=== PATIENT | male | born 1955 | race Asian ===

== ENCOUNTER → 2021-04-20 11:11 | Outpatient (BNVA) | payer MEDICARE, MEDICAID, SELFPAY | PROVIDERS: PCP Internal Medicine; Referring Provider Internal Medicine; Visit Provider Surgery | DX: K40.90 Unilateral inguinal hernia, without obstruction or gangrene, not specified as recurrent (principal) | CPT/HCPCS: 99202 ==

== ENCOUNTER 2021-05-24 06:21 | Day surgery (SDC) | payer MEDICARE, SELFPAY ==
[2021-05-19 14:24] VITALS: BMI 27.3
[2021-05-24 06:44] LABS: Glucose, Whole Blood 173 mg/dL (60-115)
[2021-05-24 06:51] VITALS: BP 156/98; PULSE 82; RESP 18; TEMP 36.1; O2SAT 96
[2021-05-24] MEDS: ceFAZolin Sodium/Dextrose,Iso 2 GM/50 ML PIGGYBACK IV (06:53)
[2021-05-24] MEDS: Lactated Ringers 1,000 ML 100 ML IVCONT (06:53)
--- NOTE | 2021-05-24 07:08 | HO.ANESPROP2 ---
[facility] Active Problems Active Problems: All Active Problems (Updated 05/19/21 @ 14:23 by Padmini Lynch) Left inguinal hernia (Acute) Diabetes mellitus (Acute) Hypercholesterolemia (Acute) Past Medical History Medical History (Updated 05/19/21 @ 14:23 by Padmini Lynch) COVID-19 vaccine series completed Diabetes mellitus History of COVID-19 Hypercholesterolemia Family History Family history of problems with anesthesia: No Surgical History Surgical History (Updated 05/19/21 @ 14:21 by Padmini Lynch) No history of previous surgery History of Problems with Anesthesia: No Social History Social History (Updated 05/19/21 @ 14:23 by Padmini Lynch) Alcohol intake: current Alcohol intake frequency: holidays/special occasions only Patient Tobacco Use Status: Former Tobacco user Quit Date: Use of substances other than those prescribed or required for medical reasons: No Are you DNR?: No Advance Directives: No Advance Directives Information Provided: No Advance Directives on File: No Meds Allergies Allergy/AdvReac Type Severity Reaction Status Date / Time Seasonal Allergies Allergy Mild Unknown Verified 05/11/21 11:17 Active Medications: Current Medications Generic Name Dose Route Start Last Admin Trade Name Freq PRN Reason Stop Dose Admin Lactated Ringer's 1,000 mls @ 100 mls/hr 05/24/21 06:30 05/24/21 06:53 Lr IVCONT 100 mls/hr .Q10H SURESH Administration Home Medications Medication Instructions Recorded Confirmed Last Taken Type ammonium lactate 12 % lotion TOPICAL 04/20/21 04/20/21 Unknown History aspirin 81 mg tablet,delayed 81 mg PO DAILY 04/20/21 05/19/21 Unknown History release blood sugar diagnostic #10 ea 04/20/21 04/20/21 Unknown History blood-glucose meter #1 ea 04/20/21 04/20/21 Unknown History canagliflozin 300 mg tablet 300 mg PO DAILY 04/20/21 05/19/21 Unknown History glipizide 10 mg tablet 10 mg PO BID 04/20/21 05/19/21 Unknown History lancets 28 gauge #100 ea 04/20/21 04/20/21 Unknown History sildenafil 25 mg tablet 25 mg PO DAILY PRN 04/20/21 04/20/21 Unknown History simvastatin 40 mg tablet 40 mg PO BEDTIME 04/20/21 05/19/21 Unknown History Exam Exam Date and Time: May 24, 2021 0708 Height,Weight and Vital Signs: Height 5 ft 7 in Weight 79.379 kg Last Vital Signs Temp 97.0 F 05/24/21 06:51 Pulse 82 05/24/21 06:51 Resp 18 05/24/21 06:51 BP 156/98 H 05/24/21 06:51 Pulse Ox 96 05/24/21 06:51 Pertinent Lab Results Pertinent Lab Results: Laboratory Tests 05/24/21 06:40 POC Glucose 173 H Airway Mallampati Class: III TM Dist: <=3cm Neck ROM: Full Loose/Missing/Broken Teeth: No Heart: ok Lungs: ok Assessment and Plan Assessment Anesthesia Assessment: Anesthesia Plan Discussed and Chart Reviewed Final Anesthetic Review NPO: Yes ASA Class: II Final Preanesthetic Review: No Changes in Pt Med Stat, Meds/Allgs Chart Reviewed, Consent Obtained/Reviewed and Anes Risks/Benef Reviewed Patient Risk: Intermediate Procedure Risk: Low Anesthetic Plan Anesthetic Plan: GA and Agree w/ Assess. and Plan Disposition: Standard PACU
--- NOTE | 2021-05-24 07:27 | MHC.SHP ---
Pre-Procedural Eval Section A Date of Service: 05/24/21 The patient is an INPATIENT: No Changes since office visit: Yes Patient answered all questions; No Cold of Flu in the past 2 weeks, No New Medical Problems and No Changes in Medication The History & Physical has been completed within 30 days and I have reviewed it.: Yes Section B Chief Complaint: Left Inguinal Hernia Allergies: Allergies Allergy/AdvReac Type Severity Reaction Status Date / Time Seasonal Allergies Allergy Mild Unknown Verified 05/11/21 11:17 Plan Diagnosis/Plan: Unchanged I have reviewed the history and physical and performed a pertinent physical examination on my patient. No changes have occurred unless specified.
--- NOTE | 2021-05-24 08:40 | W.PM.OPN ---
Operative Note Operative Note Date of Service: 05/24/21 Narrative: Preoperative diagnosis: Left inguinal hernia Postoperative diagnosis: Same Procedure: Repair of left inguinal hernia with mesh Surgeon: Mart Allen MD Lead Software Developer: No physician Anesthesia: General LMA Indications for procedure: 66-year-old male patient presenting with a lump in the left groin which increases in size with lifting and straining. On examination the patient is found to have a left inguinal hernia which increases with Valsalva maneuvers and reduces with light pressure. There is minimal tenderness to palpation. Operative findings:. Large indirect left inguinal hernia containing preperitoneal fat Specimen: None Estimated blood loss: 5 mL Complications: None Procedure details: Patient was brought to the OR and placed in a supine position. After administering general anesthesia the patient's abdomen was prepped with ChloraPrep and draped in a sterile fashion. A surgical time-out was called the consent confirmed. Patient received preoperative antibiotics and Venodyne boots were in place. Local anesthesia consisting of 0.5% Sensorcaine with epinephrine was infiltrated over the left inguinal ligament. Incision was then made in oblique fashion over the inguinal ligament. This carried out through subcutaneous tissue past Bhavani's fashion up to the external oblique aponeurosis. Additional local was infiltrated below the external oblique aponeurosis. This was then incised with a scalpel wide with the Metzenbaum scissors. Spermatic cord was then dissected free from the surrounding inguinal canal and retracted using a Shan drain. The floor of the inguinal canal was examined and no direct hernia was identified. A large indirect hernia was noted just lateral to the epigastric vessels extending into the for matted cord. The sac was dissected free from the spermatic cord and reduced into the abdominal cavity. The sac was then plicated using [id number] 0 Polysorb sutures to close the enlarged internal ring and internal oblique muscle. Fibers of the cremasteric muscle were then and no indirect sac identified within the spermatic cord. Attention was then directed to the direct space which was divided between Allis clamps. The preperitoneal space was then created. This was opened further using an open Ray-Dom sponge. A medium PHS mesh was then obtained. The circular underlay was placed into the preperitoneal space and deployed. The overlay was then secured to the pubic tubercle conjoined tendon shelving edge of the inguinal ligament using interrupted 0 Polysorb sutures. A slit was made in the mesh and the mesh were wrapped around the spermatic cord at the internal ring. This was then secured to the shelving edge of the inguinal ligament using the 0 Polysorb suture. This was felt to be loose enough to allow the tip of an index finger to pass. Wounds were checked for hemostasis. Wounds were irrigated with saline solution and suctioned dry. External oblique aponeurosis was then closed using a running 2 0 Polysorb suture. Bhavani's fascia and dermis reapproximated using interrupted 3-0 Polysorb sutures. Skin was then closed using a running subcuticular 4-0 Polysorb suture. Steri-Strips 2 x 2 gauze and Tegaderm were then applied. The patient tolerated the procedure well. Sponge, instrument, needle counts reported as correct. Patient was transferred to PACU in stable condition.
[2021-05-24 08:45] VITALS: BP 155/90; PULSE 80; RESP 12; TEMP 36.6; O2SAT 97
[2021-05-24 08:50] VITALS: BP 147/95; PULSE 80; RESP 12; O2SAT 97
[2021-05-24 08:55] VITALS: BP 136/93; PULSE 80; RESP 16; O2SAT 98
[2021-05-24 09:00] VITALS: BP 146/96; PULSE 75; RESP 16; O2SAT 98
[2021-05-24 09:15] VITALS: BP 147/93; PULSE 74; RESP 16; TEMP 36.6; O2SAT 100
== END 2021-05-24 09:57 | disposition home or self-care (01) ==
PROVIDERS: PCP Internal Medicine; Visit Provider Surgery
PROC: (CPT 49505; principal; 2021-05-24 07:30)
DX: K40.90 Unilateral inguinal hernia, without obstruction or gangrene, not specified as recurrent (principal); E11.9 Type 2 diabetes mellitus without complications; E78.00 Pure hypercholesterolemia, unspecified; Z79.84 Long term (current) use of oral hypoglycemic drugs; Z79.82 Long term (current) use of aspirin; Z79.899 Other long term (current) drug therapy; Z86.16 Personal history of COVID-19; Z87.891 Personal history of nicotine dependence
CPT/HCPCS: 49505; 82947; C1781; J0690; J1100; J2405; J3010

== ENCOUNTER → 2021-06-01 10:06 | Outpatient (BNVA) | payer MEDICARE, SELFPAY | PROVIDERS: PCP Internal Medicine; Referring Provider Internal Medicine; Visit Provider Surgery | DX: Z48.815 Encounter for surgical aftercare following surgery on the digestive system (principal); Z87.19 Personal history of other diseases of the digestive system | CPT/HCPCS: 99212 ==

== ENCOUNTER → 2021-06-29 15:40 | Outpatient (BNVA) | payer MEDICARE, SELFPAY | PROVIDERS: PCP Internal Medicine; Referring Provider Internal Medicine; Visit Provider Surgery | DX: Z48.815 Encounter for surgical aftercare following surgery on the digestive system (principal); Z87.19 Personal history of other diseases of the digestive system | CPT/HCPCS: 99212 ==

== ENCOUNTER 2023-07-02 16:16 | Outpatient (REF) | payer MEDICARE, SELFPAY | END 2023-07-02 16:17 | disposition home or self-care (01) | LOC: HO.CHCLDS 16:16 | PROVIDERS: Visit Provider Internal Medicine | DX: Z12.5 Encounter for screening for malignant neoplasm of prostate (principal); R30.0 Dysuria | CPT/HCPCS: 36415; 84153 ==

== ENCOUNTER 2024-02-21 15:57 | Outpatient (REF) | payer MEDICARE, SELFPAY ==
[2024-02-21 18:32] LABS: Influenza A PCR NEGATIVE (Negative); Influenza B PCR NEGATIVE (Negative); Resp Syncy Virus RNA Qual PCR NEGATIVE (Negative); SARS COV2 PCR INHOUSE NEGATIVE (Negative)
== END 2024-02-21 15:58 | disposition home or self-care (01) ==
LOC: HO.CHCLNP 15:57
PROVIDERS: Visit Provider Family Medicine
DX: J45.40 Moderate persistent asthma, uncomplicated (principal); R06.02 Shortness of breath; R05.1 Acute cough
CPT/HCPCS: 0241U

== ENCOUNTER 2024-04-08 08:34 | Outpatient (REF) | payer MEDICARE, SELFPAY ==
[2024-04-08 14:45] LABS: MANUAL DIFF FLAG NO
[2024-04-08 15:20] LABS: Alanine Aminotransferase 61 U/L (0-40); Albumin Level 4.6 g/dL (3.5-5.0); Alkaline Phosphatase 52 U/L (39-117); Anion Gap 15 (12-20); Aspartate Amino Transferase 36 U/L (5-37); Bilirubin Total 0.8 mg/dL (0.0-1.0); Blood Urea Nitrogen 18 mg/dL (9-16); Calcium 9.8 mg/dL (8.4-10.2); Carbon Dioxide 26 mmol/L (22-29); Chloride 104 mmol/L (96-108); Cholesterol 169 mg/dL (<200); Estimated Glomerular Filt Rate > 60; Glucose Random 154 mg/dL (60-115); HDL Cholesterol 40 mg/dL (>40); Potassium 4.7 mmol/L (3.3-5.1); Sodium 140 mmol/L (135-145); Total Protein 8.2 g/dL (6.5-8.0); Triglycerides 442 mg/dL (<150)
[2024-04-08 15:24] LABS: Basophils Percent Auto 0.4 % (0-2); Eosinophils Absolute Auto 0.1 X10*3/uL (0.0-0.4); Eosinophils Percent Auto 1.6 % (0-4); Hematocrit 51.3 % (42.0-52.0); Hemoglobin 16.9 g/dl (14.0-18.0); Imm Gran Abs Auto 0.04 X10*3/uL (0.00-0.03); Imm Gran Pct Auto 0.4 % (0.0-0.4); Lymphocytes Absolute Auto 0.9 X10*3/uL (1.2-4.9); Lymphocytes Percent Auto 10.5 % (20-40); Mean Corpuscular HGB Conc 32.9 g/dl (31.0-36.0); Mean Corpuscular Hemoglobin 29.9 pg (27.0-33.0); Mean Corpuscular Volume 90.6 fL (80.0-98.0); Mean Platelet Volume 10.6 fL (9.4-12.4); Monocytes Absolute Auto 0.6 X10*3/uL (0.1-1.2); Monocytes Percent Auto 6.3 % (2-11); Neutrophils Absolute Auto 7.3 x10*3/uL (2.0-8.3); Neutrophils Percent Auto 80.8 % (45-73); Platelet Count 150 X10*3/uL (160-400); Red Blood Count 5.66 X10*6/uL (4.60-5.80); Red Cell Distribution Width 13.9 % (11.0-16.0)
[2024-04-08 15:26] LABS: TSH reflex Free T4 0.71 uIU/mL (0.32-4.0); Vitamin D 25-OH Total 26.1 ng/mL (>30)
[2024-04-08 15:40] LABS: Creatinine Urine 59.67 mg/dL; Microalbum/Creatinine Ratio Ur 41.8 ug/mg cr (<30)
[2024-04-08 15:42] LABS: Folate 7.7 ng/mL (> or = 4.0); Vitamin B12 572 pg/mL (200-900)
== END 2024-04-08 08:35 | disposition home or self-care (01) ==
LOC: HO.CHCLDS 08:34
PROVIDERS: Visit Provider Internal Medicine
DX: E78.00 Pure hypercholesterolemia, unspecified (principal); R53.83 Other fatigue; E11.9 Type 2 diabetes mellitus without complications
CPT/HCPCS: 36415; 80053; 80061; 82043; 82306; 82570; 82607; 82746; 84443; 85025

== ENCOUNTER 2025-04-16 08:50 | Outpatient (REF) | payer MEDICARE, SELFPAY ==
--- OUTSIDE RECORDS SUMMARY | 2025-04-16 09:07 | XMS_ITS | Encounter Summary ---
Author Organization [employer] Address [address] [facility] [address] [place] [address] Care Team Providers Care Sales Order Clerk Name Role Phone Elvira Shipley MD Primary Care Provider [phone] Anabel Sullivan PharmD Unavailable [phone] Encounter Details Date Type Department Care Team (Late Contact Info) Description 05/09/2023 Orders Only [facility] MED & PEDS [address] [place] [address] Ivania Bellamy LPN Social History Tobacco Use Types Packs/Day Years Used Date Smoking Tobacco: Former Cigarettes 1 32 1 971 - 2003 Smokeless Tobacco: Never Sex and Gender Information Value Date Recorded Sex Assigned at Male 09/10/2022 10:21 AM EDT Legal Sex Male 10:21 AM EDT Gender Identity Choose not to disclose 10:21 AM EDT Sexual Orientation Choose not to disclose 2021 10:21 AM EDT COVID-19 Exposure Response Date Recorded In the last 10 days, have yo u been in contact with someone who was confirmed or suspected to have Coronavirus/COVID-19? No / Unsure 05/03/2023 4:02 PM EDT documented as of this encounter Plan of Treatment Upcoming Encounters Date Type Department Care Team (Late st Contact Info) Description 04/23/2025 3:00 PM EDT Telemedicine [facility] MED & PEDS [address] [place] [address] Anabel Sullivan, PharmD [address] [place], [place] [phone] 06/10/2025 4:00 PM EDT Office Visit [facility] MED & PEDS [address] [place] [address] Elvira Shipley MD [address] [place] [address] documented as of this encounter Visit Diagnoses Not on filedocumented in this encounter Care Teams Sales Order Clerk Relationship Specialty Start Date End Date Elvira Shipley MD [address] [place] [address] PCP - General Internal Medicine 11/11/18 Anabel Sullivan, Mary BethD [address] [place] [id number] Pharmacist Internal Medicine 03/26/25 documented as of this encounter
[2025-04-16 14:08] LABS: MANUAL DIFF FLAG NO
[2025-04-16 14:18] LABS: Basophils Percent Auto 0.4 % (0-2); Eosinophils Absolute Auto 0.2 X10*3/uL (0.0-0.4); Eosinophils Percent Auto 2.8 % (0-4); Hemoglobin 16.2 g/dl (14.0-18.0); Imm Gran Abs Auto 0.01 X10*3/uL (0.00-0.03); Imm Gran Pct Auto 0.1 % (0.0-0.4); Lymphocytes Absolute Auto 2.7 X10*3/uL (1.2-4.9); Lymphocytes Percent Auto 39.2 % (20-40); Mean Corpuscular HGB Conc 33.1 g/dl (31.0-36.0); Mean Corpuscular Hemoglobin 29.1 pg (27.0-33.0); Mean Corpuscular Volume 88.1 fL (80.0-98.0); Mean Platelet Volume 10.4 fL (9.4-12.4); Monocytes Absolute Auto 0.4 X10*3/uL (0.1-1.2); Monocytes Percent Auto 6.5 % (2-11); Neutrophils Absolute Auto 3.5 x10*3/uL (2.0-8.3); Platelet Count 152 X10*3/uL (160-400); Red Blood Count 5.56 X10*6/uL (4.60-5.80); Red Cell Distribution Width 13.4 % (11.0-16.0); White Blood Count 6.8 X10*3/uL (4.8-10.8)
[2025-04-16 14:50] LABS: Ferritin 436 ng/mL (20-250); TSH reflex Free T4 0.91 uIU/mL (0.32-4.0)
[2025-04-16 15:03] LABS: Anion Gap 8 (12-20)
[2025-04-16 15:08] LABS: Alanine Aminotransferase 47 U/L (0-40); Albumin Level 4.6 g/dL (3.5-5.0); Alkaline Phosphatase 45 U/L (39-117); Aspartate Amino Transferase 37 U/L (5-37); Bilirubin Total 0.6 mg/dL (0.0-1.0); Blood Urea Nitrogen 20 mg/dL (9-16); Calcium 9.6 mg/dL (8.4-10.2); Carbon Dioxide 31 mmol/L (22-29); Chloride 109 mmol/L (96-108); Cholesterol 120 mg/dL (<200); Estimated Glomerular Filt Rate > 60; Glucose Random 162 mg/dL (60-115); HDL Cholesterol 35 mg/dL (>40); Iron 81 mcg/dL (45-160); LDL Cholesterol Calculated 46 mg/dL (<100); Percent Iron Saturation 27 % (15-50); Potassium 4.5 mmol/L (3.3-5.1); Sodium 143 mmol/L (135-145); Total Iron Binding Capacity 302 mcg/dL (228-428); Total Protein 7.9 g/dL (6.5-8.0); Triglycerides 196 mg/dL (<150); Unsaturated Iron Binding 221 ug/dL
[2025-04-19 20:24] LABS: IgA 583 mg/dL (70-320); IgG 1172 mg/dL (600-1540); IgM 73 mg/dL (50-300)
== END 2025-04-16 08:51 | disposition home or self-care (01) ==
LOC: HO.CHCLDS 08:50
PROVIDERS: Visit Provider Internal Medicine
DX: E11.9 Type 2 diabetes mellitus without complications (principal); E78.00 Pure hypercholesterolemia, unspecified
CPT/HCPCS: 36415; 80053; 80061; 82728; 82784; 83540; 84443; 85025

== ENCOUNTER 2025-07-14 08:42 | Outpatient (REF) | payer OTHER, SELFPAY ==
--- OUTSIDE RECORDS SUMMARY | 2025-07-13 15:00 | XMS_ITS | Encounter Summary ---
Author Organization [employer] Address [address] [facility] 7 [place] [address] Care Team Providers Care Data Developer Name Role Phone Elvira Shipley MD Primary Care Provider [phone] Anabel Sullivan PharmD Unavailable [phone] Reason for Visit * Consultation (Routine) - Authorized Specialty Diagnoses / Procedures Referred By Contac t Referred To Contact Pharmacy Diagnoses Type 2 diabetes mellitus without complication, without long-term current use of insulin (CMS/HCC) Elvira Shipley MD [address] [place] [address] Phone: tel: fax: Referral ID Status Reason Start Date Expiration Date Visits Requested Visits Authorized [id number] Authorized Consult and Treat 02/16/2025 02/16/2026 6 6 Encounter Details Date Type Department Care Team ([facility] Contact Info) Description 07/13/2025 3:00 PM EDT Telemedicine [facility] CH[facility] MED & PEDS [address] [place] [address] Anabel Sullivan, PharmD [address] [place] [address] Type 2 diabetes mellitus without complication, without long-term current use of insulin (CMS/HCC) (Primary Dx) Social History Tobacco Use Types Packs/Day Years Used Date Smoking Tobacco: Former Cigarettes 1 32 1 1 - 2002 Smokeless Tobacco: Never Housing Stability Answer Date Recorded What is your housing situation today? I have diann sing 11/12/[address] you li ve. Do you have problems with any of the following? None of the above 11/12/2024 Food Insecurity Answer Date Recorded Within the past 12 months, y ou worried that your food would run out before you got money to buy more: Never True 11/12/2024 Within the past 12 months,th e food you bought just didn't last and you didn't have enough money to get more: Never True 12/2024 Transportation Answer Date Recorded In the past 12 months, has l ack of transportation kept you from medical appts, meetings, work or from getting things needed for daily living? No 11/12/2024 Utilities Answer Date Recorded In the past 12 months, has t he [employer], gas, oil or water [employer] threatened to shut off services in your home? No 11/12/2024 Internet Access Answer Date Recorded Internet Access Q1 Yes 11/12/2024 Internet Access Q2 Not on file 11/12/2024 Sex and Gender Information Value Date Recorded Sex Assigned at Male 09/10/2022 10:21 AM EDT Legal Sex Male 10:21 AM EDT Gender Identity Male 05/05/2025 4:02 PM EDT Sexual Orientation Choose not to disclose 2021 10:21 AM EDT documented as of this encounter Progress Notes * Anabel Sullivan PharmD - 07/13/2025 3:00 PM EDT Pharmacy Brief Encounter - Medication Follow Up Pharmacist: Anabel Sullivan PharmD Edward Luong is a 70 y.o. year old patient here for CDTM - Diabetes completed over the phone. Pharmacotherapy: Metformin ER 500mg, 3 tablets daily Farxiga 10mg daily Summary of previous encounter(s): Last visit increased metformin. Patient had reported home FBG readings of ~140mg/dl uACR = 41.8 on 04/08/24, now taking Farxiga Today's Visit: Patient reports tolerating metformin, denies adverse effects or other concerns Reports FBG readings continue to average 140mg/dl Denies increase in metformin dose today, requests A1c check before further medication changes. Plan: Order A1c, patient to complete at his convenience. If > 7.5-8% will increase metformin to max daily dose of 2,000mg (4 tablets daily) Order updated uACR which was previously above goal > 1 year ago Follow up after receiving lab results or 1 month, whichever sooner. documented in this encounter Plan of Treatment Scheduled Orders Name Type Priority Associated Diagnoses Orde r Schedule Hemoglobin A1c Lab Routine Type 2 diabetes mellitus without complication, without long-term current use of insulin (CMS/HCC) Expected: 07/13/2025 (Approximate), Expires: 07/13/2026 Albumin, Random Urine W/Creatinine Lab Routine Type 2 diabetes mellitus without complication, without long-term current use of insulin (CMS/HCC) Expected: 07/13/2025 (Approximate), Expires: 07/13/2026 documented as of this encounter Visit Diagnoses Diagnosis Type 2 diabetes mellitus without complication, without long-term current use of insulin (CMS/HCC)- Primary documented in this encounter Care Teams Data Developer Relationship Specialty Start Date End Date Elvira Shipley MD [address] [place] [id number] PCP - General Internal Medicine 11/11/18 Anabel Sullivan PharmD [address] [place] [id number] Pharmacist Internal Medicine 03/26/25 documented as of this encounter
--- OUTSIDE RECORDS SUMMARY | 2025-07-14 09:10 | XMS_ITS | Encounter Summary ---
Author Organization [employer] Address [address] [facility] [facility] [address] [place] [address] Care Team Providers Care Data Examination Clerk Name Role Phone Elvira Shipley MD Primary Care Provider [phone] Anabel Sullivan PharmD Unavailable [phone] Encounter Details Date Type Department Care Team (Late st Contact Info) Description 04/08/2025 Orders Only [facility] CH[facility] MED & PEDS [address] [place], [place] [phone] ProviderAbdoul MD Social History Tobacco Use Types Packs/Day Years Used Date Smoking Tobacco: Former Cigarettes 1 32 1 971 - 2003 Smokeless Tobacco: Never Housing Stability Answer Date Recorded What is your housing situation today? I have diann malaika 11/12/[address] you li [...] the past 12 months, has t he electric, gas, oil or water company threatened to shut off services in your [...] AM EDT documented as of this encounter Plan of Treatment Not on file documented as of this encounter Procedures Procedure Name Priority Date/Time Associated Diagnosis Comments TSH W/REFLEX TO FT4 Routine 02/19/2025 9 :19 AM EDT CBC WITH AUTO DIFFERENTIAL Routine 02/19/2025 9:19 AM EDT LIPID PANEL, STANDARD Routine 02/19/2025 9:19 AM EDT COMPREHENSIVE METABOLIC PANEL Routine 02/19/2025 9:19 AM EDT documented in this encounter Results * CBC auto differential (02/19/2025 9:19 AM EDT) Blood Venous blood specimen / Unknown Result [facility] Provider LAB BLOOD ORDERABLES Renetta l Result * Comprehensive Metabolic Panel (02/19/2025 9:19 AM EDT) Blood Venous blood specimen / Unknown Result [facility] Provider LAB BLOOD ORDERABLES Renetta l Result * Lipid Panel, Standard (02/19/2025 9:19 AM EDT) Blood Venous blood specimen / Unknown [facility] Provider LAB BLOOD ORDERABLES Renetta l Result * TSH with Reflex to Free T4 (02/19/2025 9:19 AM EDT) Blood Venous blood specimen / Unknown Result [facility] Provider LAB BLOOD ORDERABLES Renetta l Result documented in this encounter Visit Diagnoses Not on filedocumented in this encounter Care Teams Data Examination Clerk Relationship Specialty Start Date End Date Elvira Shipley MD [address] [place] [address] PCP - General Internal Medicine 11/11/18 Anabel Sullivan, Laurence [address] [place] [address] [place] [address] Pharmacist Internal Medicine 03/26/25 documented as of this encounter
--- OUTSIDE RECORDS SUMMARY | 2025-07-14 09:10 | XMS_ITS | Encounter Summary ---
Author Organization [employer] Address [address] [place] [address] [place] [address] Care Team Providers Care Technical Account Manager Name Role Phone Elvira Shipley MD Primary Care Provider [phone] Anabel Sullivan PharmD Unavailable [phone] Reason for Referral * Consultation (Routine) - Authorized Specialty Diagnoses / Procedures Referred By Contrufus t Referred To Contact Pharmacy Diagnoses Type 2 diabetes mellitus without complication, without long-term current use of insulin (CMS/HCC) Elvira Shipley MD [address] [place] [address] Phone: tel: fax: Referral ID Status Reason Start Date Expiration Date Visits Requested Visits Authorized [id number] Authorized Consult and Treat 02/16/2025 02/16/2026 6 6 Encounter Details Date Type Department Care Team ([facility] st Contact Info) Description 02/16/2025 Orders Only [facility] CH[facility] MED & PEDS [address] [place] [address] Elvira Shipley MD [address] [place] [address] Type 2 diabetes mellitus without complication, without long-term current use of insulin (CMS/HCC) (Primary Dx) Social History Tobacco Use Types Packs/Day Years Used Date Smoking Tobacco: Former Cigarettes 1 32 1 1 - 2002 Smokeless Tobacco: Never Housing Stability Answer Date Recorded What is your housing situation today? I have diann dai 11/12/[address] you li [...] as of this encounter Plan of Treatment Scheduled Referrals Name Type Priority Associated Diagnoses Orde r Schedule Referral to Pharmacy CDTM Outpatient Referral Routine Type 2 diabetes mellitus without complication, without long-term current use of insulin (CMS/HCC) Ordered: 02/16/2025 documented as of this encounter Visit Diagnoses Diagnosis Type 2 diabetes mellitus without complication, without long-term current use of insulin (CMS/HCC)- Primary documented in this encounter Care Teams Technical Account Manager Relationship Specialty Start Date End Date Elvira Shipley MD [address] [place] [address] PCP - General Internal Medicine 11/11/18 Anabel Sullivan PharmD [address] [place] [address] Pharmacist Internal Medicine 03/26/25 documented as of this encounter
--- OUTSIDE RECORDS SUMMARY | 2025-07-14 09:10 | XMS_ITS | Encounter Summary ---
Author Organization [employer] Address [address] [facility] 7 [place] [address] Care Team Providers Care Bill Adjuster Name Role Phone Elvira Shipley MD Primary Care Provider [phone] Anabel Sullivan PharmD Unavailable [phone] Reason for Visit * Reason Onset Date Comments Durable Medical Equipment 05/01/2024 Encounter Details Date Type Department Care Team (Late st Contact Info) Description 05/01/2024 Telephone [facility] MEDICINE [address] [place] [address] Elvira Shipley MD [address] [place] [address] Durable Medical Equipment Social History Tobacco Use Types Packs/Day Years Used Date Smoking Tobacco: Former Cigarettes 1 32 1 971 - 2002 Smokeless Tobacco: Never Sex and Gender Information Value Date Recorded Sex Assigned at Male 09/10/2022 10:21 AM EDT Legal Sex Male 10:21 AM EDT Gender Identity Male 05/05/2025 4:02 PM EDT Sexual Orientation Choose not to disclose 2021 10:21 AM EDT documented as of this encounter Miscellaneous Notes * Telephone Encounter - Leonid Hyatt RN - 05/01/2024 3:00 PM EDT Please see message below regarding request for a new freestyle lite glucometer. Unable to locate onmed list. * Telephone Encounter - Kenji Rust - 05/01/2024 11:19 AM EDT Tc from patients spouse requesting a new Free style lite glucose monitor due to previous one being broken documented in this encounter Plan of Treatment Not on file documented as of this encounter Visit Diagnoses Not on filedocumented in this encounter Care Teams Bill Adjuster Relationship Specialty Start Date End Date Elvira Shipley MD [address] [place] [address] PCP - General Internal Medicine 11/11/18 Anabel Sullivan PharmD [address] [place] [id number] Pharmacist Internal Medicine 03/26/25 documented as of this encounter
--- OUTSIDE RECORDS SUMMARY | 2025-07-14 09:10 | XMS_ITS | Clinical Summary ---
Author Organization [employer] Address [address] [place] [address] Care Team Providers Care Barge Pilot Name Role Phone Elvira Shipley MD Primary Care Provider [phone] Anabel Sullivan PharmD Unavailable [phone] Allergies No known active allergies Medications brimonidine (AlphaGAN P) 0.2 % ophthalmic solution INSTILL ONE DROP IN EACH EYE two (2) times a day 024 Active dorzolamide-timolol (Cosopt) 2-0.5 % ophthalmic solution INSTILL ONE DROP IN EACH EYE two (2) times a day 024 Active latanoprost (Xalatan) 0.005 % ophthalmic solution INSTILL 1 DROP IN EACH EYE ONCE DAILY AT BEDTIME 024 Active [facility] Glucose 4-6 GM-MG oral gel TAKE DIRECTED NEEDED 50 tablet 5 024 Active sildenafil (Viagra) 100 MG tabletIndications:Erect ile dysfunction due to diseases classified elsewhere TAKE 1 TABLET ONCE DAILY NEEDED . TAKE 1 HOUR BEFORE SEXUAL INTERCOURSE 40 tablet 5 024 Active cholecalciferol (Vitamin D3) 25 MCG (1000 UT) tabletIndications:Vitam in D deficiency Take 1 tablet (1,000 Units) by mouth Once per day. 60 tablet 3 025 Active Arnuity Ellipta 100 MCG/ACT inhaler INHALE 1 PUFF INTO lungs ONCE DAILY IN THE MORNING. rinse mouth and throat after use 30 each 11 025 Active Farxiga 10 MGIndications:Type 2 diabetes mellitus without complication, without long-term current use of insulin ([facility]) TAKE 1 TABLET EVERY MORNING 30 tablet 5 04/28/2 025 Active Aspirin Low Dose 81 MG EC tabletIndications:Type 2 diabetes mellitus without complication, without long-term current use of insulin ([facility]) TAKE 1 TABLET EVERY MORNING 30 tablet Active ammonium lactate (Lac-Hydrin) 12 % lotion APPLY TO THE AFFECTED AREA ON SKIN two (2) times a day 225 g Active albuterol 108 (90 Base) MCG/ACT inhalerIndications:Mild intermittent asthma without complication INHALE 2 PUFFS INTO lungs EVERY 4 TO 6 HOURS NEEDED FOR SHORTNESS OF BREATH OR FOR WHEEZING 8.5 g Active ketorolac (Acular) 0.5 % ophthalmic solution INSTILL 1 DROP IN EACH EYE two (2) times a day Active polyvinyl alcohol (Liquifilm Tears) 1.4 % ophthalmic solution INSTILL 1 DROP IN EACH EYE two (2) times a day Active Vascepa 1 g capsule TAKE 2 CAPSULES (2grams) WITH BREAKFAST AND 2 CAPSULE WITH A MEAL IN THE EVENING Active glucose blood (FREESTYLE LITE) test strip Test blood sugar every morning 100 strip 3 Active FreeStyle lancetsIndications:Type 2 diabetes mellitus without complication, without long-term current use of insulin ([facility]) 1 each by Other route Once per day. Test blood sugar every morning 100 each 3 Active Blood Glucose Monitoring Suppl (FreeStyle Moore Lite) w/Device kitIndications:Type 2 diabetes mellitus without complication, without long-term current use of insulin ([facility]) Test blood sugar every morning 1 kit Active Icosapent Ethyl (Vascepa) 1 g capsuleIndications:Pure hypercholesterolemia Take 2 capsules (2 g) by mouth with breakfast and with evening meal. 120 capsule 11 025 2025 Active ketoconazole (NIZOral) 2 % shampooIndications:Othe r seborrheic dermatitis APPLY TO THE AFFECTED AREA ON SKIN ONCE DAILY, lather, LEAVE ON SCALP FOR 5 MINUTES 360 mL Active metFORMIN XR (Glucophage-XR) 500 MG 24 hr tablet Take 1 tablet by mouth 3 times daily 90 tablet 2 025 Active rosuvastatin (Crestor) 40 MG tabletIndications:Pure hypercholesterolemia TAKE 1 TABLET ONCE DAILY 90 tablet 025 Active Active Problems Problem Noted Date Diagnosed Date Hypertriglyceridemia 11/19/2024 Moderate persistent asthma 02/21/2024 Assessment & Plan (02/25/2024 4:22 PM EDT): Patient is experiencing an asthma exacerbation. Plan to administer a course of oral steroids to improve airway inflammation and symptoms. Monitoring for potential side effects of steroids, such as elevated blood sugar levels, especially since the treatment is for 5 days. - Swabs for COVID, RSV, and influenza where conducted to rule out concurrent infections that could be worsening the asthma exacerbation. TESTS RETURNED NEGATIVE - Prescribed Prednisone and Aruinity Ellipta Erectile dysfunction 06/01/2021 History of severe acute resp iratory syndrome coronavirus 2 (SARS-CoV-2) disease 01/09/2021 Diabetes mellitus 04/30/2014 Pure hypercholesterolemia 12/27/2011 Encounters Date Type Department Care Team Description 07/13/2025 3:00 PM EDT Telemedicine [facility] [address] [place] [address] Anabel Sullivan PharmD Type 2 diabetes mellitus without complication, without long-term current use of insulin (CMS/HCC) (Primary Dx) 07/13/2025 Travel 06/10/2025 4:00 PM EDT Office Visit [facility] [address] [place] [phone] Elvira Shipley MD Type 2 diabetes mellitus without complication, without long-term current use of insulin (CMS/HCC); Pure hypercholesterolemia 06/10/2025 Travel 06/09/2025 Telephone [facility] [address] [place] [address] Elvira Shipley MD Chart Prep 06/03/2025 Patient Outreach [facility] [address] [place] [address] Elvira Shipley MD Pre-visit Planning (Pre visit planning LVM ) 06/02/2025 3:00 PM EDT Telemedicine [facility] [address] [place] [address] Anabel Sullivan, Laurence Type 2 diabetes mellitus without complication, without long-term current use of insulin ([facility]) (Primary Dx) 05/05/2025 Travel 04/19/2025 Results Follow-Up [facility] [address] [place] [address] Jennie Alcala, KATHARINE Comprehensive Metabolic Panel, Lipid Panel, Standard, TSH W/Reflex to FT4, CBC auto differential 04/13/2025 Refill [facility] [address] [place] [address] Elvira Shipley MD Other seborrheic dermatitis from Last 3 Months Immunizations Immunization Administration Dates Next Due Influenza Quadrivalent Adjuvanted 08/29/2021 Influenza injectable quadriv alent IIV4 with preservative 08/29/2018,09/27/2017 Influenza injectable quadrivalent preservative f ree 08/18/2019,08/31/2015 Influenza, IIV3, injectable 08/06/2014 Influenza, Split (incl. purified surface antigen ) 08/08/2012 Influenza, trivalent, adjuvanted 09/07/2024 Pfizer Covid-19 Vaccine 12+ 04/07/2024 Pneumococcal Conjugate PCV 20 04/07/2024 Tdap 07/06/2016 Social History Tobacco Use Types Packs/Day Years Used Date Smoking Tobacco: Former Cigarettes 1 32 1 971 - 2003 Smokeless Tobacco: Never Tobacco Cessation:Counseling Given: No Housing Stability Answer Date Recorded What is [...] not to disclose 2021 10:21 AM EDT Last Filed Vital Signs Vital Sign Reading Time Taken Comments Blood Pressure 126/81 06/10/2025 4:19 PM EDT Pulse 59 06/10/2025 4:19 PM EDT Temperature 36.4 C (97.6 F) 06/10/2025 3:58 PM EDT Respiratory Rate 16 06/10/2025 3:58 PM EDT Oxygen Saturation 97% 11/19/2024 3:24 PM EST Inhaled Oxygen Concentration - - Weight 73.9 kg (163 lb) 06/10/2025 3:58 PM EDT Height 166 cm (5' 5.35 ) 11/19/2024 3:24 PM EST Body Mass Index 26.83 11/19/2024 3:24 PM EST Plan of Treatment Health Maintenance Due Date Last Done Comments CT Colonography 1955 Colonoscopy 1955 Depression Screening 1955 FIT 1955 FOBT 1955 Sigmoidoscopy 1955 Zoster Vaccines (1 of 2) 2005 RSV Patients and Patients Aged 60 years or older (1 - Risk 60-74 years 1-dose series) 2015 Diabetes: Urine Protein Screening 04/08/2025 04/08/2024, 01/11/2021 Eye Exam 04/08/2025 04/08/2024 Diabetes: Hemoglobin A1C 06/26/2025 025, 11/19/2024, 04/07/2024, Additional history exists COVID-19 Vaccine ( season) 2025 04/07/2024, 09/08/2021, 02/15/2021, Additional history exists Influenza Vaccine (#1) 2025 , 08/29/2021, 08/18/2019, Additional history exists Diabetes: Foot Exam 11/19/2025 11/19/2024 Lipid Panel 04/16/2026 04/16/2025, 0411/2024, 04/08/2024, Additional history exists Alcohol/Substance Use Screening 06/10/2026 06/10/2025 SDOH Screening 06/10/2026 06/10/2025 Tobacco Screening 06/10/2026 06/10/2025 DTaP/Tdap/Td Vaccines (2 - Td or Tdap) 07/06/2026 07/06/2016 Colorectal Cancer Screening 12/15/2027 FIT DNA/Cologuard 12/15/2027 12/15/2024 Hepatitis C Screening Completed 08/16/2022 Pneumococcal Vaccine: 50+ Years Completed 04/07/2024 HIB Vaccines Aged Out No longer eligi ble based on patient's age to complete this topic HPV Vaccines Aged Out No longer eligi ble based on patient's age to complete this topic Hepatitis A Vaccines Aged Out No long er eligible based on patient's age to complete this topic Hepatitis B Vaccines Aged Out No long er eligible based on patient's age to complete this topic IPV Vaccines Aged Out No longer eligi ble based on patient's age to complete this topic Meningococcal B Vaccine Aged Out No l onger eligible based on patient's age to complete this topic Meningococcal Vaccine Aged Out No mirna yoli eligible based on patient's age to complete this topic RSV under 20 months Aged Out No longe r eligible based on patient's age to complete this topic Rotavirus Vaccines Aged Out No longer eligible based on patient's age to complete this topic Procedures Procedure Name Priority Date/Time Associated Diagnosis Comments POCT GLUCOSE Routine 06/10/2025 4:04 PM EDT Type 2 diabetes mellitus without complication, without long-term current use of insulin ([facility]) IRON AND TOTAL IRON BINDING CAPACITY Routine 04/16/2025 12:00 AM EDT Pure hypercholesterolemia FERRITIN Routine 04/16/2025 12:00 AM EDT Pure hypercholesterolemia IMMUNOGLOBULINS, QUANTITATIVE, IGA, IGG, IGM Routine 04/16/2025 12:00 AM EDT Pure hypercholesterolemia CBC WITH AUTO DIFFERENTIAL Routine 04/16/2025 12:00 AM EDT Type 2 diabetes mellitus without complication, without long-term current use of insulin (CMS/HCC) TSH W/REFLEX TO FT4 Routine 04/16/2025 12:00 AM EDT Type 2 diabetes mellitus without complication, without long-term current use of insulin (CMS/HCC) LIPID PANEL, STANDARD Routine 04/16/2025 12:00 AM EDT Type 2 diabetes mellitus without complication, without long-term current use of insulin (CMS/HCC) COMPREHENSIVE METABOLIC PANEL Routine 04/16/2025 12:00 AM EDT Type 2 diabetes mellitus without complication, without long-term current use of insulin (CMS/HCC) POCT GLYCATED HEMOGLOBIN, TOTAL Routine 03/26/2025 3:25 PM EDT Type 2 diabetes mellitus without complication, without long-term current use of insulin (CMS/HCC) LAB COLOGUARD COLON CANCER SCREEN Routine 12/15/2024 11:10 AM EST Screen for colon cancer ALBUMIN, RANDOM URINE W/CREATININE Routine 04/08/2024 8:40 AM EDT Type 2 diabetes mellitus without complication, without long-term current use of insulin (CMS/HCC) ZZZ HISTORICAL HEPATITIS C AB W/REFL TO HCV RNA, QN, PCR Routine 08/16/2022 8:55 AM EDT from Last 3 Months or Most Recently Relevant to Health Maintenance Results * POCT Glucose (06/10/2025 4:04 PM EDT) Glucose Blood, POC 176 60 - 200 mg/dL QC Media Lot # [id number] Lot# Expiration Date Blood Capillary blood specimen / Unknown 06/10/2025 4:04 PM EDT lEvira Shipley MD POINT OF CARE TEST ENTER/ED IT ORDERABLES Final Result * TSH W/Reflex to FT4 (04/16/2025 12:00 AM EDT) TSH reflex Free T4 0.91 0.32 - 4.0 uIU/mL [facility] Blood Venous blood specimen / Unknown 04/16/2025 04/16/2025 Elvira Shipley MD LAB BLOOD ORDERABLES Final Result Performing Organization Address City/State/[facility] Co de Phone Number [facility] [address] [place] [phone] * (ABNORMAL) CBC auto differential (04/16/2025 12:00 AM EDT) White Blood Count 6.8 4.8 - 10.8 X10*3/uL [facility] Red Blood Count 5.56 4.60 - 5.80 X10*6/uL [facility] Hemoglobin 16.2 14.0 - 18.0 g/dl [facility] Hematocrit 49.0 42.0 - 52.0 % [facility] Mean Corpuscular Volume 88.1 80.0 - 98.0 fL [facility] Mean Corpuscular Hemoglobin 29.1 27.0 - 33.0 pg [facility] Mean Corpuscular HGB Conc 33.1 31.0 - 36.0 g/dl [facility] Red Cell Distribution Width 13.4 11.0 - 16.0 % [facility] Platelet Count 152(L) 160 - 400 X10*3/uL [facility] Mean Platelet Volume 10.4 9.4 - 12.4 fL [facility] Neutrophils Percent Auto 51.0 45 - 73 % [facility] Imm Gran Pct Auto 0.1 0.0 - 0.4 % [facility] Lymphocytes Percent Auto 39.2 20 - 40 % [facility] Monocytes Percent Auto 6.5 2 - 11 % [facility] Eosinophils Percent Auto 2.8 0 - 4 % [facility] Basophils Percent Auto 0.4 0 - 2 % [facility] NRBC Pct Auto 0.0 0.0 - 0.2 /100WBC [facility] Neutrophils Absolute Auto 3.5 2.0 - 8.3 x10*3/uL [facility] Imm Gran Abs Auto 0.01 0.00 - 0.03 X10*3/uL [facility] Lymphocytes Absolute Auto 2.7 1.2 - 4.9 X10*3/uL [facility] Monocytes Absolute Auto 0.4 0.1 - 1.2 X10*3/uL [facility] Eosinophils Absolute Auto 0.2 0.0 - 0.4 X10*3/uL [facility] Basophils Absolute Auto 0.0 0.0 - 0.2 X10*3/uL [facility] NRBC Abs Auto 0.000 0.0 - 0.012 X10*3/uL [facility] Blood Venous blood specimen / Unknown 04/16/2025 04/16/2025 us Elvira Shipley MD LAB BLOOD ORDERABLES Final Result [facility] [address] [place] [address] [phone] * Iron And Total Iron Binding Capacity (04/16/2025 12:00 AM EDT) Iron 81 45 - 160 mcg/dL [facility] Total Iron Binding Capacity 302 228 - 428 mcg/dL [facility] Percent Iron Saturation 27 15 - 50 % [facility] Unsaturated Iron Binding 221 ug/dL [facility] Blood Venous blood specimen / Unknown 04/16/2025 04/16/2025 us Elvira Shiplye MD LAB BLOOD ORDERABLES Final Result Performing Organization Address [facility] Co de Phone Number [facility] [address] [place] [phone] * (ABNORMAL) Immunoglobulins, Quantitative, IgA, IgG, IgM (04/16/2025 12:00 AM EDT) IMMUNOGLOBULIN G 1172 600 - 1540 mg/dL [facility] IMMUNOGLOBULIN A 583(A) 70 - 320 mg/dL [facility] Immunoglobulin M 73 50 - 300 mg/dL [facility] Comment:THIS TEST WAS PERFOR MED AT:[employer] [place] [phone] LEONARD MD Blood Venous blood specimen / Unknown 04/16/2025 04/16/2025 us Elvira Shipley MD LAB BLOOD ORDERABLES Final Result Performing Organization Address [facility] Co de Phone Number [facility] [address] [place] [phone] * (ABNORMAL) Ferritin (04/16/2025 12:00 AM EDT) Pathologist [facility] Ferritin 436(H) 20 - 250 ng/mL [facility] Blood Venous blood specimen / Unknown 04/16/2025 04/16/2025 us Elvira Shipley MD LAB BLOOD ORDERABLES Final Result Performing Organization Address [facility] Co de Phone Number [facility] [address] [place] [phone] * (ABNORMAL) Lipid Panel, Standard (04/16/2025 12:00 AM EDT) Triglycerides 196(H) <150 mg/dL [facility] Comment:Desirable Triglyceri de: less than 150 mg/dLBorderline High Triglyceride 150-199 mg/dLHigh Triglyceride: 200-499 mg/dLVery High Triglyceride: greater than or equal to 5OO mg/dL Cholesterol 120 <200 mg/dL [facility] Comment:Desirable Cholestero l: less than 200 mg/dLBorderline High Cholesterol: 200-239 mg/dLHigh Cholesterol: greater than 239 mg/dL LDL Cholesterol Calculated 46 <100 mg/dL [facility] Comment:Desirable LDL: less than 100 mg/dLNear Optimal/Above Optimal LDL: 110- 129 mg/dLBorderline High LDL: 130-159 mg/dLHigh LDL: 160-189 mg/dLVery High LDL: greater than or equal to 190 mg/dL HDL Cholesterol 35(L) >40 mg/dL [facility] Comment:Desirable HDL: great er than 40 mg/dL Note: This HDL assay may give artificially low results in patients with liver disease. Blood Venous blood specimen / Unknown 04/16/2025 04/16/2025 us Elvira Shipley MD LAB BLOOD ORDERABLES Final Result [facility] [address] [place] [phone] * (ABNORMAL) Comprehensive Metabolic Panel (04/16/2025 12:00 AM EDT) Sodium 143 135 - 145 mmol/L [facility] Potassium 4.5 3.3 - 5.1 mmol/L [facility] Chloride 109(H) 96 - 108 mmol/L [facility] Carbon Dioxide 31(H) 22 - 29 mmol/L [facility] Anion Gap 8(L) 12 - 20 [facility] Urea Nitrogen (BUN) 20(H) 9 - 16 mg/dL [facility] Creatinine, Serum 0.93 0.5 - 1.4 mg/dL [facility] Estimated Glomerular Filt Rate >60 [facility] Comment:Chronic Kidney Disea se: Estimated GFR < 60 mL/min/[id number] Kidney Disease: Estimated GFR < 15 mL/min/1.73m2 Glucose 162(H) 60 - 115 mg/dL [facility] Calcium 9.6 8.4 - 10.2 mg/dL [facility] Bilirubin, Total 0.6 0.0 - 1.0 mg/dL [facility] Aspartate Amino Transferase 37 5 - 37 U/L [facility] Alanine Aminotransferase 47(H) 0 - 40 U/L [facility] Total Protein 7.9 6.5 - 8.0 g/dL [facility] Albumin Level 4.6 3.5 - 5.0 g/dL [facility] Alkaline Phosphatase 45 39 - 117 U/L [facility] Blood Venous blood specimen / Unknown 04/16/2025 04/16/2025 Elvira Shipley MD LAB BLOOD ORDERABLES Final Result [facility] [address] [place] [phone] * (ABNORMAL) POCT A1C (03/26/2025 3:25 PM EDT) Hemoglobin A1C 9.3(A) 4.0 - 6.0 % QC Media Lot # [id number] Lot# Expiration Date Blood 03/26/2025 3:25 PM EDT Elvira Shipley MD POINT OF CARE TEST ENTER/ED IT ORDERABLES Final Result * Cologuard?? colon cancer screening (12/15/2024 11:10 AM EST) Cologuard Result Negative Negative 12/23/19 2:06 AM EST [employer] (CLIA #:[id number]) Comment: NEGATIVE TEST RESULT. A negative Cologuard result indicates a low likelihood that a colorectal cancer (CRC) or advanced adenoma (adenomatous polyps with more advanced pre-malignant features) is present. The chance that a person with a negative Cologuard test has a colorectal cancer is less than 1 in 1500 (negative predictive value >99.9%) or has an advanced adenoma is less than 5.3% (negative predictive value 94.7%). These data are based on a prospective cross-sectional study of 10,000 individuals at average risk for colorectal cancer who were screened with both Cologuard and colonoscopy. (Reba Haynes al, N Engl J Med 2014;370(14):3301-5333) The normal value (reference range) for this assay is negative. COLOGUARD RE-SCREENING RECOMMENDATION: Periodic colorectal cancer screening is an important part of preventive healthcare for asymptomatic individuals at average risk for colorectal cancer. Following a negative Cologuard result, the [place] [employer] and U.S. Multi-Society Task Force screening guidelines recommend a Cologuard re-screening interval of 3 years. References: [place] [employer] Guideline for Colorectal Cancer Screening: https://www.cancer.org/cancer/xrcus-kptkjs-hqmvhj/kvttrwyja-asazquiml-ecijexr/ac s-rec ommendations.html.; Dima DK, Jina LEWIS, Renu MachadoK, Colorectal Cancer Screening: Recommendations for Physicians and Patients from the U.S. Multi-Society Task Force on Colorectal Cancer Screening , Am J Gastroenterology 2017; 112:5670-1235. TEST DESCRIPTION: Composite algorithmic analysis of stool DNA-biomarkers with hemoglobin immunoassay. Quantitative values of individual biomarkers are not reportable and are not associated with individual biomarker result reference ranges. Cologuard is intended for colorectal cancer screening of adults of either sex, 45 years or older, who are at average-risk for colorectal cancer (CRC). Cologuard has been approved for use by the U.S. FDA. The performance of Cologuard was established in a cross sectional study of average-risk adults aged 50-84. Cologuard performance in patients ages 45 to 49 years was estimated by sub-group analysis of near-age groups. Colonoscopies performed for a positive result may find as the most clinically significant lesion: colorectal cancer [4.0%], advanced adenoma (including sessile serrated polyps greater than or equal to 1cm diameter) [20%] or non- advanced adenoma [31%]; or no colorectal neoplasia [45%]. These estimates are derived from a prospective cross-sectional screening study of 10,000 individuals at average risk for colorectal cancer who were screened with both Cologuard and colonoscopy. (Reba Haynes al, N Engl J Med 2014;370(14):3031-6481.) Cologuard may produce a false negative or false positive result (no colorectal cancer or precancerous polyp present at colonoscopy follow up). A negative Cologuard test result does not guarantee the absence of CRC or advanced adenoma (pre-cancer). The current Cologuard screening interval is every 3 years. ([place] [employer] and U.S. Multi-Society Task Force). Cologuard performance data in a 10,000 patient pivotal study using colonoscopy as the reference method can be accessed at the following location: www.[employer].Sentropi/results. Additional description of the Cologuard test process, warnings and precautions can be found at www.cologuard.com. Stool specimen (specimen) 12/15/2024 11:10 AM EST 12/16/2024 2:15 PM EST Elvira Shipley MD LAB MOLECULAR DIAGNOSTICS O RDERABLES Final Result [employer] (CLIA #:[id number]) [place] [address], * (ABNORMAL) Albumin, Random Urine W/Creatinine (04/08/2024 8:40 AM EDT) Creatinine, Urine 59.67 mg/dL [facility] Microalbumin Urine 25.0 mg/L [facility] Microalbum Creatinine Ratio Ur 41.8(H) <30 ug/mg cr [facility] Comment:Albumin/Creatinine R atio Reference Ranges: Normal: < 30 ug/mg creatinine Microalbuminuria: 30 - 300 ug/mg creatinineClinical Albuminuria: > 300 ug/mg creatinine Urine (Urine, Random) 04/08/2024 8:40 AM EDT 04/08/2024 2:31 PM EDT Elvira Shipley MD LAB URINE ORDERABLES Final Result [facility] [address] [place] [phone] * HEPATITIS C AB W/REFL TO HCV RNA, QN, PCR (08/16/2022 8:55 AM EDT) HEPATITIS C ANTIBODY NON-REACTI VE NON-REACT ASAEL [facility] INDEX 0.14 <1.00 [facility] Comment: HCV antibody was non-reactive. There is no laboratory evidence of HCV infection. In most cases, no further action is required. However, if recent HCV exposure is suspected, a test for HCV RNA (test code 15988) is suggested. For additional information please refer to http://[employer]/faq/GEK44a0 (This link is being provided for informational/ educational purposes only.) 08/16/2022 8:55 AM EDT Elvira Shipley MD HISTORICAL/NON ORDERABLE LA BS Final Result Performing Organization Address City/[facility] Co de Phone Number [facility] from Last 3 Months or Most Recently Relevant to Health Maintenance Insurance [facility] [employer] (O D-SNP) Care Teams Barge Pilot Relationship Specialty Start Date End Date Elvira Shipley MD [address] [place] [phone] PCP - General Internal Medicine 11/11/18 Anabel Sullivan PharmD [address] [place] [phone] Pharmacist Internal Medicine 03/26/25
--- OUTSIDE RECORDS SUMMARY | 2025-07-14 09:10 | XMS_ITS | Encounter Summary ---
Author Organization [employer] Address [address] [place] [address] 7 [place] [address] Care Team Providers Care Staff Air Tactical Officer Name Role Phone Elvira Shipley MD Primary Care Provider [phone]- [phone] Anabel Sullivan PharmD Unavailable [phone] Reason for Visit * Reason Comments Med Refill Encounter Details Date Type Department Care Team ([facility] st Contact Info) Description 12/14/2022 Refill [facility] MED & PEDS 505 [place], [place] [phone] Elvira Shipley MD 505 [place], [place] [phone] Other seborrheic dermatitis (Primary Dx) Social History Tobacco Use Types Packs/Day Years Used Date Smoking Tobacco: Never Assessed Sex and Gender Information Value Date Recorded Sex Assigned at Male 09/10/2022 10:21 AM EDT Legal Sex Male 10:21 AM EDT Gender Identity Male 05/05/2025 4:02 PM EDT Sexual Orientation Choose not to disclose 2021 10:21 AM EDT documented as of this encounter Plan of Treatment Not on file documented as of this encounter Visit Diagnoses Diagnosis Other seborrheic dermatitis- Primary documented in this encounter Care Teams Staff Air Tactical Officer Relationship Specialty Start Date End Date Elvira Shipley MD 505 [place] [address] PCP - General Internal Medicine 11/11/18 Anabel Sullivan, PharmD 230 [place] [address] Pharmacist Internal Medicine 03/26/25 documented as of this encounter
--- OUTSIDE RECORDS SUMMARY | 2025-07-14 09:10 | XMS_ITS | Encounter Summary ---
Author Organization [employer] Address [address] [place] [address] 7 [place] [address] Care Team Providers Care Mathematics Teacher Name Role Phone Elvira Shipley MD Primary Care Provider [phone] Anabel Sullivan PharmD Unavailable [phone] Encounter Details Date Type Department Care Team (Late st Contact Info) Description 09/17/2023 Orders Only [facility] CHC MED & PEDS 505 [place] [address] Elvira Shipley MD 505 [place] [address] Type 2 diabetes mellitus without complication, without long-term current use of insulin (CMS/[facility]); Pure hypercholesterolemia; Erectile dysfunction due to diseases classified elsewhere Social History Tobacco Use Types Packs/Day Years [...] without long-term current use of insulin (CMS/HCC) Pure hypercholesterolemia Erectile dysfunction due to diseases classified elsewhere documented in this encounter Care Teams Mathematics Teacher Relationship Specialty Start Date End Date Elvira Shipley MD 505 [place] [address] PCP - General Internal Medicine 11/11/18 Anabel Sullivan, Laurence [address] [place] [address] Pharmacist Internal Medicine 03/26/25 documented as of this encounter
--- OUTSIDE RECORDS SUMMARY | 2025-07-14 09:10 | XMS_ITS | Encounter Summary ---
Author Organization [employer] Address [address] [facility] 7t [place] [address] Care Team Providers Care Cold Rolling Machine Setter Name Role Phone Elvira Shipley MD Primary Care Provider [phone] Anabel Sullivan PharmD Unavailable [phone] Reason for Visit * Reason Comments Med Refill Encounter Details Date Type Department Care Team ([facility] st Contact Info) Description 11/22/2024 Refill [facility] CHC MED & PEDS 505 [place], [place] [phone] Evi Zelaya MD 505 [place] [address] Pure hypercholesterolemia Social History Tobacco Use Types Packs/Day Years Used Date Smoking Tobacco: Former Cigarettes 1 32 1 971 - 2002 Smokeless Tobacco: Never Housing Stability [...] as of this encounter Visit Diagnoses Diagnosis Pure hypercholesterolemia documented in this encounter Care Teams Cold Rolling Machine Setter Relationship Specialty Start Date End Date Elvira Shipley MD 505 [place] [address] PCP - General Internal Medicine 11/11/18 Anabel Sullivan PharmD 230 [place] [address] Pharmacist Internal Medicine 03/26/25 documented as of this encounter
--- OUTSIDE RECORDS SUMMARY | 2025-07-14 09:10 | XMS_ITS | Encounter Summary ---
Author Organization [employer] Address [address] [place] [address] 7 [place] [address] Care Team Providers Care Gyro Compass Tester Name Role Phone Elvira Shipley MD Primary Care Provider [phone] Anabel Sullivan PharmD Unavailable [phone] Encounter Details Date Type Department Care Team (Late st Contact Info) Description 03/14/2023 Orders Only [facility] CHC MED & PEDS 505 [place], [place] [phone] Denise Bah LPN Social History Tobacco Use Types Packs/Day [...] on filedocumented in this encounter Care Teams Gyro Compass Tester Relationship Specialty Start Date End Date Elvira Shipley MD 505 [place] [address] PCP - General Internal Medicine 11/11/18 Anabel Sullivan, PharmD 230 [place] [address] Pharmacist Internal Medicine 03/26/25 documented as of this encounter
--- OUTSIDE RECORDS SUMMARY | 2025-07-14 09:10 | XMS_ITS | Encounter Summary ---
Author Organization [employer] Address [address] [place] [address] 7 [place] [address] Care Team Providers Care Astronomy Department Chair Name Role Phone Elvira Shipley MD Primary Care Provider [phone] Anabel Sullivan PharmD Unavailable [phone] Reason for Referral * Imaging (Routine) - Authorized Specialty Diagnoses / Procedures Referred By Contac t Referred To Contact Radiology Diagnoses Pure hypercholesterolemia Procedures US Abdomen Comp w elastography Elvira Shipley MD 505 [place] [address] Phone: tel: fax: [address] Phone: tel: fax: Referral ID Status Reason Start Date Expiration Date V isits Requested Visits Authorized [id number] Authorized 04/09/2025 04/09/2026 1 1 * Imaging (Routine) - Authorized Specialty Diagnoses / Procedures Referred By Contac t Referred To Contact Radiology Diagnoses Pure hypercholesterolemia Procedures US Abdomen Complete Elvira Shipley MD 505 [place] [address] Phone: tel: fax: [address] Phone: tel: fax: Referral ID Status Reason Start Date Expiration Date V isits Requested Visits Authorized [id number] Authorized 04/09/2025 04/09/2026 1 1 Encounter Details Date Type Department Care Team (Latest Contact Info) Description 04/09/2025 Orders Only [facility] CHC MED & PEDS 505 [place] [address] Elvira Shipley MD 505 [place] [address] Pure hypercholesterolemia (Primary Dx) Social History Tobacco Use Types [...] of this encounter Plan of Treatment Scheduled Orders Name Type Priority Associated Diagnoses Orde r Schedule US Abdomen Complete Imaging Routine Pure hypercholesterolemia Expected: 04/09/2025, Expires: 04/09/2026 Smooth Muscle Antibody with Reflex to Titer Lab Routine Pure hypercholesterolemia Expected: 04/09/2025 (Approximate), Expires: 04/09/2026 Prothrombin Time-INR Lab Routine Pure hypercholesterolemia Expected: 04/09/2025, Expires: 04/09/2026 Alpha 1 Antitrypsin Lab Routine Pure hypercholesterolemia Expected: 04/09/2025 (Approximate), Expires: 04/09/2026 US Abdomen Comp w elastography Imaging Routine Pure hypercholesterolemia Expected: 04/09/2025, Expires: 04/09/2026 documented as of this encounter Procedures Procedure Name Priority Date/Time Associated Diagnosis Comments IRON AND TOTAL IRON BINDING CAPACITY Routine 04/16/2025 12:00 AM EDT Pure hypercholesterolemia IMMUNOGLOBULINS, QUANTITATIVE, IGA, IGG, IGM Routine 04/16/2025 12:00 AM EDT Pure hypercholesterolemia FERRITIN Routine 04/16/2025 12:00 AM EDT Pure hypercholesterolemia documented in this encounter Results * Iron And Total Iron Binding Capacity (04/16/2025 12:00 AM EDT) Iron 81 45 - 160 mcg/dL [facility] Total Iron Binding Capacity 302 228 - 428 mcg/dL [facility] Percent Iron Saturation 27 15 - 50 % [facility] Unsaturated Iron Binding 221 ug/dL [facility] Blood Venous blood specimen / Unknown 04/16/2025 04/16/2025 us Elvira Shipley MD LAB BLOOD ORDERABLES Final Result [facility] [address] [place] [address] [phone] * (ABNORMAL) Ferritin (04/16/2025 12:00 AM EDT) Ferritin 436(H) 20 - 250 ng/mL [facility] Blood Venous blood specimen / Unknown 04/16/2025 04/16/2025 us Elvira Shipley MD LAB BLOOD ORDERABLES Final Result Performing Organization Address [facility] Co de Phone Number [facility] [address] [place] [address] [phone] * (ABNORMAL) Immunoglobulins, Quantitative, IgA, IgG, IgM (04/16/2025 12:00 AM EDT) IMMUNOGLOBULIN G 1172 600 - 1540 mg/dL [facility] IMMUNOGLOBULIN A 583(A) 70 - 320 mg/dL [facility] Immunoglobulin M 73 50 - 300 mg/dL [facility] Comment:THIS TEST WAS PERFOR MED AT:[facility] [place] [id number] LEONARD MD Blood Venous blood specimen / Unknown 04/16/2025 04/16/2025 us Elvira Shipley MD LAB BLOOD ORDERABLES Final Result Performing Organization Address [facility] Co de Phone Number [facility] [address] [place] [address] [phone] documented in this encounter Visit Diagnoses Diagnosis Pure hypercholesterolemia- Primary documented in this encounter Care Teams Astronomy Department Chair Relationship Specialty Start Date End Date Elvira Shipley MD [address] [place] [address] PCP - General Internal Medicine 11/11/18 Anabel Sullivan PharmD [address] [place] [address] Pharmacist Internal Medicine 03/26/25 documented as of this encounter
--- OUTSIDE RECORDS SUMMARY | 2025-07-14 09:10 | XMS_ITS | Encounter Summary ---
Author Organization [employer] Address [address] [place] [address] 7 [place] [address] Care Team Providers Care Flight/Transport Nurse Name Role Phone Elvira Shipley MD Primary Care Provider [phone] Anabel Sullivan PharmD Unavailable [phone] Reason for Visit * Reason Comments Med Refill Encounter Details Date Type Department Care Team ([facility] st Contact Info) Description 03/13/2024 Refill C [facility] MED & PEDS [address] [place], [place] [phone] Elvira Shipley MD [address] [place] [address] Mild intermittent asthma without complication Social History Tobacco Use Types Packs/Day Years [...] as of this encounter Visit Diagnoses Diagnosis Mild intermittent asthma without complication documented in this encounter Care Teams Flight/Transport Nurse Relationship Specialty Start Date End Date Elvira Shipley MD [address] [place] [address] PCP - General Internal Medicine 11/11/18 Anabel Sullivan, PharmD [address] [place] [address] Pharmacist Internal Medicine 03/26/25 documented as of this encounter
--- OUTSIDE RECORDS SUMMARY | 2025-07-14 09:10 | XMS_ITS | Encounter Summary ---
Author Organization [employer] Address [address] [facility] 7t [place] [address] Care Team Providers Care Urban Gardening Specialist Name Role Phone Elvira Shipley MD Primary Care Provider [phone] Anabel Sullivan PharmD Unavailable [phone] Encounter Details Date Type Department Care Team (Latest Contact Info) Description 07/13/2025 Travel Social History Tobacco Use Types Packs/Day Years [...] on filedocumented in this encounter Care Teams Urban Gardening Specialist Relationship Specialty Start Date End Date Elvira Shipley MD [address] [place] [address] PCP - General Internal Medicine 11/11/18 Anabel Sullivan PharmD [address] [place] [address] Pharmacist Internal Medicine 03/26/25 documented as of this encounter
--- OUTSIDE RECORDS SUMMARY | 2025-07-14 09:10 | XMS_ITS | Encounter Summary ---
Author Organization [employer] Address [address] [place] [address] 7 [place] [address] Care Team Providers Care Forge Operator Name Role Phone Elvira Shipley MD Primary Care Provider [phone] Anabel Sullivan PharmD Unavailable [phone] Encounter Details Date Type Department Care Team (Late st Contact Info) Description 05/01/2024 Orders Only [facility] CHC MED & PEDS [address] [place] [address] Elvira Shipley MD [address] [place] [address] Type 2 diabetes mellitus without complication, without [...] Primary documented in this encounter Care Teams Forge Operator Relationship Specialty Start Date End Date Elvira Shipley MD [address] [place] [address] PCP - General Internal Medicine 11/11/18 Anabel Sullivan, Mary BethD [address] [place] [address] Pharmacist Internal Medicine 03/26/25 documented as of this encounter
--- OUTSIDE RECORDS SUMMARY | 2025-07-14 09:10 | XMS_ITS | Encounter Summary ---
Author Organization [employer] Address [address] [place] [address] 7 [place] [address] Care Team Providers Care Xm1 Tank Driver Name Role Phone Elvira Shipley MD Primary Care Provider [phone] Anabel Sullivan PharmD Unavailable [phone] Reason for Referral * Imaging (Routine) - Closed Specialty Diagnoses / Procedures Referred By Tara estrella Referred To Contact Radiology Diagnoses Transaminitis Procedures US Abdomen Complete Elvira Shipley MD [address] [place] [address] Phone: tel: fax: [facility] [address] [facility], [address] [place] [address] Phone: tel: fax: Referral ID Status Reason Start Date Expiration Date Visits Re quested Visits Authorized [id number] Closed 04/10/2024 04/10/2025 1 1 Encounter Details Date Type Department Care Team (Latest Contact Info) Description 04/10/2024 Orders Only [facility] CHC MED & PEDS [address] [place] [address] Elvira Shipley MD [address] [place], [place] [phone] Pure hypercholesterolemia (Primary Dx); Hypertriglyceridemia; Transaminitis Social History Tobacco Use Types Packs/Day Years [...] Type Priority Associated Diagnoses Orde r Schedule Hepatitis Panel, General Lab Routine Transaminitis Expected: 04/10/2024 (Approximate), Expires: 04/10/2025 documented as of this encounter Procedures Procedure Name Priority Date/Time Associated Diagnosis Comments US ABDOMEN COMPLETE Routine 04/12/2024 Transaminitis documented in this encounter Results * US Abdomen Complete (04/12/2024) Anatomical Region Laterality Modality Abdomen Ultrasound us Elvira Shipley MD IMG US PROCEDURES Final Res ult documented in this encounter Visit Diagnoses Diagnosis Pure hypercholesterolemia- Primary Hypertriglyceridemia Pure hyperglyceridemia Transaminitis Nonspecific elevation of levels of transaminase or lactic acid dehydrogenase (LDH) documented in this encounter Care Teams Xm1 Tank Driver Relationship Specialty Start Date End Date Elvira Shipley MD [address] [place] [address] PCP - General Internal Medicine 11/11/18 Anabel Sullivan PharmD 230 [place] [address] Pharmacist Internal Medicine 03/26/25 documented as of this encounter
--- OUTSIDE RECORDS SUMMARY | 2025-07-14 09:10 | XMS_ITS | Encounter Summary ---
Author Organization [employer] Address [address] [place] [address] 7 [place] [address] Care Team Providers Care Lens Grinder Name Role Phone Elvira Shipley MD Primary Care Provider [phone] Anabel Sullivan PharmD Unavailable [phone] Encounter Details Date Type Department Care Team (Late st Contact Info) Description 05/09/2023 Orders Only [facility] CHC MED & PEDS 505 [place], [place] [phone] Ivania Bellamy LPN Social History Tobacco Use [...] on filedocumented in this encounter Care Teams Lens Grinder Relationship Specialty Start Date End Date Elvira Shipley MD 505 [place] [address] PCP - General Internal Medicine 11/11/18 Anabel Sullivan, PharmD [address] [place] [address] Pharmacist Internal Medicine 03/26/25 documented as of this encounter
--- OUTSIDE RECORDS SUMMARY | 2025-07-14 09:10 | XMS_ITS | Encounter Summary ---
Author Organization [employer] Address [address] [facility] 7 [place] [address] Care Team Providers Care Critical Care Educator Name Role Phone Elvira Shipley MD Primary Care Provider [phone]- [phone] Anabel Sullivan PharmD Unavailable [phone] Encounter Details Date Type Department Care Team ([facility] st Contact Info) Description 11/20/2024 Orders Only [facility] CHC MED & PEDS 505 [place], [place] [phone] Elvira Shipley MD 505 [place] [address] Screen for colon cancer (Primary Dx) Social History Tobacco Use Types [...] Procedure Name Priority Date/Time Associated Diagnosis Comments LAB COLOGUARD COLON CANCER SCREEN Routine 12/15/2024 11:10 AM EST Screen for colon cancer documented in this encounter Results * Cologuard?? colon cancer screening (12/15/2024 11:10 AM EST) Cologuard Result Negative Negative 12/23/19 2:06 AM EST Valuation App (CLIA #:[id number]) Comment: NEGATIVE TEST RESULT. A negative Cologuard [...] (Reba Haynes al, N Engl J Med 2014;370(14):7889-9596) The normal value (reference range) for this assay is negative. COLOGUARD RE-SCREENING RECOMMENDATION: Periodic colorectal cancer screening is an important part of preventive healthcare for asymptomatic individuals at average risk for colorectal cancer. Following a negative Cologuard result, the [place] [employer] and U.S. Multi-Society Task Force screening guidelines recommend a Cologuard re-screening interval of 3 years. References: [place] [employer] Guideline for Colorectal Cancer Screening: https://www.cancer.org/cancer/eadth-lyddnp-lesfjl/hdjmocbgf-ebnwtitia-aqwjhwr/ac s-rec ommendations.html.; Dima DK, Jina CR, Renu MachadoK, Colorectal Cancer Screening: Recommendations for Physicians and Patients from the U.S. Multi-Society Task Force on Colorectal Cancer Screening , Am J Gastroenterology 2017; 112:1999-9257. TEST DESCRIPTION: Composite algorithmic analysis of stool [...] (Reba Haynes al, N Engl J Med 2014;370(14):1146-7330.) Cologuard may produce a false negative or false positive result (no colorectal cancer or precancerous polyp present at colonoscopy follow up). A negative Cologuard test result does not guarantee the absence of CRC or advanced adenoma (pre-cancer). The current Cologuard screening interval is every 3 years. ([place] [employer] and U.S. Multi-Society Task Force). Cologuard performance data in a 10,000 patient pivotal study using colonoscopy as the reference method can be accessed at the following location: www.[employer].Bin1 ATE/results. Additional description of the Cologuard test process, warnings and precautions can be found at www.[employer].Bin1 ATE. Stool specimen (specimen) 12/15/2024 11:10 AM EST 12/16/2024 2:15 PM EST Elvira Shipley MD LAB MOLECULAR DIAGNOSTICS O RDERABLES Final Result Valuation App (CLIA #:[id number]) [address] [place] [address], documented in this encounter Visit Diagnoses Diagnosis Screen for colon cancer- Primary Special screening for malignant neoplasms, colon documented in this encounter Care Teams Critical Care Educator Relationship Specialty Start Date End Date Elvira Shipley MD [address] [place] [address] PCP - General Internal Medicine 11/11/18 Anabel Sullivan PharmD [address] [place] [address] Pharmacist Internal Medicine 03/26/25 documented as of this encounter
--- OUTSIDE RECORDS SUMMARY | 2025-07-14 09:10 | XMS_ITS | Encounter Summary ---
Author Organization [facility] [employer] Address [address] [place] [address] 7 [place] [address] Care Team Providers Care Procurement Intern Name Role Phone Elvira Shipley MD Primary Care Provider [phone] Anabel Sullivan PharmD Unavailable [phone] Reason for Visit * Reason Comments Med Refill Encounter Details Date Type Department Care Team ([facility] st Contact Info) Description 05/15/2023 Refill C [facility] MED & PEDS 505 [place] [address] Elvira Shipley MD 505 [place] [address] Mild intermittent asthma without complication Social History [...] complication documented in this encounter Care Teams Procurement Intern Relationship Specialty Start Date End Date Elvira Shipley MD [address] [place] [address] PCP - General Internal Medicine 11/11/18 Anabel Sullivan, Laurence [address] [place] [address] [place] [address] Pharmacist Internal Medicine 03/26/25 documented as of this encounter
[2025-07-14 14:12] LABS: INTERNATIONAL NORM RATIO 0.9 (0.9-1.1); Prothrombin Time 10.0 SEC (10.9-12.4)
[2025-07-14 14:18] LABS: Hemoglobin A1C 316.6396 umol/L; Total Hemoglobin (HGBA1C) 4215.8136 umol/L
[2025-07-14 15:22] LABS: Microalbum/Creatinine Ratio Ur 144.3 ug/mg cr (<30)
== END 2025-07-14 08:43 | disposition home or self-care (01) ==
LOC: HO.CHCLDS 08:42
PROVIDERS: Visit Provider Internal Medicine
DX: E11.9 Type 2 diabetes mellitus without complications (principal); E78.00 Pure hypercholesterolemia, unspecified; Z51.81 Encounter for therapeutic drug level monitoring
CPT/HCPCS: 36415; 82043; 82570; 83036; 85610

== ENCOUNTER 2025-08-06 08:22 | Outpatient (REF) | payer OTHER, SELFPAY ==
--- NOTE | ~2025-08-06 | US_ITS ---
EXAMINATION: US COMPLETE ABDOMEN WITH LIVER ELASTOGRAPHY CLINICAL INFORMATION: Transaminitis COMPARISON: None available. TECHNIQUE: Real-time imaging of the abdominal viscera. Noninvasive ultrasound liver fibrosis assessment is performed using Siemens point quantification shear wave elastography (pSWE) with a C5-2 MHz transducer. Multiple elastography samples are obtained. FINDINGS: PANCREAS: The visualized pancreatic head and body are normal in appearance. The remainder of the pancreas is obscured from visualization by the overlying bowel gas. ABDOMINAL AORTA: No aortic aneurysm is seen. The mid aorta is obscured by gas. INFERIOR VENA CAVA: Visualized portions are normal. LIVER: The liver demonstrates normal size, contour and echogenicity. No or suspicious focal lesion or intrahepatic biliary duct dilatation. There is a right lobe dystrophic calcification measuring 1.0 x 0.4 x 0.7 cm. The right lobe measures 13.7 cm in length. The left lobe measures 8.5 cm in length. Portal flow is towards the liver (hepatopetal). Shear wave liver elastography median stiffness is 1.46 m/s (reference: normal median stiffness is 1.3 m/s or less). IQR/median stiffness to assess sampling precision is 0.14 (reference: good quality data set is IQR/median stiffness of 0.30 or less). This represents a quality data set. GALLBLADDER: The gallbladder is physiologically distended without evidence of stones, sludge, polyps, wall thickening or pericholecystic fluid. Negative sonographic Ashton's sign. COMMON BILE DUCT: Normal in caliber measuring 0.3 cm in diameter. RIGHT KIDNEY: No hydronephrosis. No renal calculi or suspicious focal parenchymal lesions. The kidney measures 11.7 cm in maximum dimension. LEFT KIDNEY: No hydronephrosis. No renal calculi or suspicious focal parenchymal lesions. The kidney measures 11.5 cm in maximum dimension. Upper pole simple cyst measuring 1.4 x 1.3 x 1.5 cm. SPLEEN: Unremarkable. The spleen measures 9.7 cm in maximum dimension. FREE FLUID: None seen. US/US abdomen comp w elastography IMPRESSION: 1. Normal-appearing liver, gallbladder, and bile ducts. 2. Liver elastography: In the absence of other known clinical signs, measurements rule out compensated advanced chronic liver disease. If there are known clinical signs, further testing may be needed for confirmation. 3. Remainder of the examination is essentially normal. REFERENCE: Society of Radiologists in Ultrasound Liver Stiffness Thresholds (2019): LIVER STIFFNESS THRESHOLDS: *Liver Stiffness equal or less than 1.3 m/s: High probability of being normal. *Liver Stiffness less than 1.7 m/s: In the absence of other known clinical signs, rules out compensated advanced chronic liver disease. *Liver Stiffness 1.7-2.1 m/s: Suggestive of compensated advanced chronic liver disease but need further test for confirmation. *Liver Stiffness over 2.1 m/s: Rules in compensated advanced chronic liver disease. *Liver Stiffness over 2.4 m/s: Suggestive of clinically significant portal hypertension. QUALITY OF DATA SET: *IQR/Median value equal or less than 0.30implies a quality data set. *IQR/Median value over 0.30 implies a poor quality data set. SIGNIFICANT CHANGE FROM PRIOR EXAM: Significant change if liver stiffness measurement is 10% or greater from prior exam. OTHER CONSIDERATIONS: The stage of liver fibrosis may be overestimated in the setting of acute hepatitis, liver inflammation, elevated liver function tests, hepatic vascular congestion, obstructive cholestasis, non-fasting state, and infiltrative diseases such as amyloidosis and lymphoma. In some patients with NAFLD, the liver stiffness thresholds for compensated advanced chronic liver disease may be lower. In causes other than viral hepatitis and NAFLD, liver stiffness thresholds are not well established. Electronically signed by: Corey Holloway MD 08/06/2025 09:03 AM EDT
--- OUTSIDE RECORDS SUMMARY | 2025-08-06 08:44 | XMS_ITS | Encounter Summary ---
Author Organization [employer] Address [address] [facility] 7 [place] [address] Care Team Providers Care Electronic Development Technician Name Role Phone Elvira Shipley MD Primary Care Provider [phone] Anabel Sullivan PharmD Unavailable [phone] Encounter Details Date Type Department Care Team (Late st Contact Info) Description 07/14/[address] [facility] CHC MED & PEDS 505 [place], [place] [phone] Elvira Shipley MD 505 [place] [address] Type 2 diabetes mellitus without complication, without long-term current use of insulin ([facility]) (Primary Dx); Microalbuminuria Social History Tobacco Use Types Packs/Day Years Used Date Smoking Tobacco: Former Cigarettes 1 32 1 971 - 2002 Smokeless Tobacco: Never Housing Stability Answer Date Recorded What is your housing situation today? I have diannarmando dai 11/12/[address] you [...] without long-term current use of insulin ([facility])- Primary Microalbuminuria Proteinuria documented in this encounter Care Teams Electronic Development Technician Relationship Specialty Start Date End Date Elvira Shipley MD [address] [place] [address] PCP - General Internal Medicine 11/11/18 Anabel Sullivan PharmD 230 [place] [address] Pharmacist Internal Medicine 03/26/25 documented as of this encounter
--- OUTSIDE RECORDS SUMMARY | 2025-08-06 08:44 | XMS_ITS | Encounter Summary ---
Author Organization [employer] Address [address] [facility] 7 [place] [address] Care Team Providers Care Retail Leader Name Role Phone Elvira Shipley MD Primary Care Provider [phone] Anabel Sullivan PharmD Unavailable [phone] Reason for Visit * Reason Onset Date Comments Durable Medical Equipment 05/01/2024 Encounter Details Date Type Department Care Team (Late st Contact Info) Description 05/01/2024 Telephone [facility] MEDICINE [address] [place] [address] Elvira Shipley MD 505 [place], [place] [phone] Durable Medical Equipment Social History Tobacco Use [...] on filedocumented in this encounter Care Teams Retail Leader Relationship Specialty Start Date End Date Elvira Shipley MD [address] [place] [address] PCP - General Internal Medicine 11/11/18 Anabel Sullivan PharmD [address] [place] [address] Pharmacist Internal Medicine 03/26/25 documented as of this encounter
--- OUTSIDE RECORDS SUMMARY | 2025-08-06 08:44 | XMS_ITS | Encounter Summary ---
Author Organization [employer] Address [address] [place] [address] 7 [place] [address] Care Team Providers Care Court Advocate Name Role Phone Elvira Shipley MD Primary Care Provider [phone] Anabel Sullivan PharmD Unavailable [phone] Encounter Details Date Type Department Care Team (Late st Contact Info) Description 05/09/2023 Orders Only [facility] CHC MED & PEDS 505 [place], [place] [phone] Ivania Bellamy LPN Social History Tobacco Use [...] on filedocumented in this encounter Care Teams Court Advocate Relationship Specialty Start Date End Date Elvira Shipley MD 505 [place] [address] PCP - General Internal Medicine 11/11/18 Anabel Sullivan, PharmD 230 [place] [address] Pharmacist Internal Medicine 03/26/25 documented as of this encounter
--- OUTSIDE RECORDS SUMMARY | 2025-08-06 08:44 | XMS_ITS | Encounter Summary ---
Author Organization [employer] Address [address] [facility] 7t [place] [address] Care Team Providers Care Director Life Insurance Name Role Phone Elvira Shipley MD Primary Care Provider [phone] Anabel Sullivan PharmD Unavailable [phone] Reason for Visit * Reason Comments Med Refill Encounter Details Date Type Department Care Team ([facility] st Contact Info) Description 11/22/2024 Refill [facility] CHC MED & PEDS [address] [place], [place] [phone] Evi Zelaya MD 505 [place], [place] [phone] Pure hypercholesterolemia Social History Tobacco Use Types [...] hypercholesterolemia documented in this encounter Care Teams Director Life Insurance Relationship Specialty Start Date End Date Elvira Shipley MD 505 [place] [address] PCP - General Internal Medicine 11/11/18 Anabel Sullivan PharmD [address] [place] [address] Pharmacist Internal Medicine 03/26/25 documented as of this encounter
--- OUTSIDE RECORDS SUMMARY | 2025-08-06 08:44 | XMS_ITS | Encounter Summary ---
Author Organization [employer] Address [address] [place] [address] 7 [place] [address] Care Team Providers Care Cement Based Materials Pump Tender Name Role Phone Elvira Shipley MD Primary Care Provider Anabel Sullivan PharmD Unavailable [phone] Encounter Details Date Type Department Care Team (Late st Contact Info) Description 03/14/2023 Orders Only [facility] CHC MED & PEDS 505 [place], [place] [phone] Denise Bah LPN Social History Tobacco Use [...] on filedocumented in this encounter Care Teams Cement Based Materials Pump Tender Relationship Specialty Start Date End Date Elvira Shipley MD 505 [place] [address] PCP - General Internal Medicine 11/11/18 Anabel Sullivan, PharmD 230 [place] [address] Pharmacist Internal Medicine 03/26/25 documented as of this encounter
--- OUTSIDE RECORDS SUMMARY | 2025-08-06 08:44 | XMS_ITS | Encounter Summary ---
Author Organization [employer] Address [address] [place] [address] 7 [place] [address] Care Team Providers Care Lead Java Software Engineer Name Role Phone Elvira Shipley MD Primary Care Provider [phone] Anabel Sullivan PharmD Unavailable [phone] Reason for Visit * Reason Comments Med Refill Encounter Details Date Type Department Care Team ([facility] st Contact Info) Description 05/15/2023 Refill C [facility] MED & PEDS [address] [place] [address] Elvira Shipley MD 505 [place] [address] Mild intermittent asthma without complication Social History [...] complication documented in this encounter Care Teams Lead Java Software Engineer Relationship Specialty Start Date End Date Elvira Shipley MD 505 [place] [address] PCP - General Internal Medicine 11/11/18 Anabel Sullivan, Laurence [address] [place] [address] [place] [address] Pharmacist Internal Medicine 03/26/25 documented as of this encounter
--- OUTSIDE RECORDS SUMMARY | 2025-08-06 08:44 | XMS_ITS | Encounter Summary ---
Author Organization [employer] Address [address] [place] [address] 7 [place] [address] Care Team Providers Care Records Tech Name Role Phone Elvira Shipley MD Primary Care Provider [phone] Anabel Sullivan PharmD Unavailable [phone] Reason for Visit * Reason Comments Med Refill Encounter Details Date Type Department Care Team ([facility] st Contact Info) Description 12/14/2022 Refill [facility] CHC MED & PEDS 505 [place], [place] [phone] Elvira Shipley MD 505 [place], [place] [phone] Other seborrheic dermatitis (Primary Dx) Social History [...] Primary documented in this encounter Care Teams Records Tech Relationship Specialty Start Date End Date Elvira Shipley MD 505 [place] [address] PCP - General Internal Medicine 11/11/18 Anabel Sullivan, PharmD 230 [place] [address] Pharmacist Internal Medicine 03/26/25 documented as of this encounter
--- OUTSIDE RECORDS SUMMARY | 2025-08-06 08:44 | XMS_ITS | Encounter Summary ---
Author Organization [employer] Address [address] [facility] 7 [place] [address] Care Team Providers Care Linotyper Name Role Phone Elvira Shipley MD Primary Care Provider [phone]- [phone] Anabel Sullivan PharmD Unavailable [phone] Encounter Details Date Type Department Care Team ([facility] st Contact Info) Description 11/20/2024 Orders Only [facility] CHC MED & PEDS 505 [place], [place] [phone] Elvira Shipley MD 505 [place] [address] Screen for colon cancer (Primary Dx) Social [...] Result Negative Negative 12/23/19 2:06 AM EST [facility] (CLIA #:[id number]) Comment: NEGATIVE TEST RESULT. A negative Cologuard [...] (Reba Haynes al, N Engl J Med 2014;370(14):4643-4006) The normal value (reference range) for this assay is negative. COLOGUARD RE-SCREENING RECOMMENDATION: Periodic colorectal cancer screening is an important part of preventive healthcare for asymptomatic individuals at average risk for colorectal cancer. Following a negative Cologuard result, the [place] Cancer Society and U.S. Multi-Society Task Force screening guidelines recommend a Cologuard re-screening interval of 3 years. References: [place] Cancer Society Guideline for Colorectal Cancer Screening: https://www.cancer.org/cancer/mvmbr-zsurkq-zmldvw/yhvhebqwz-lmjacmzws-cvfzixh/ac s-rec ommendations.html.; Dima DK, Jina CR, Renu MachadoK, Colorectal Cancer Screening: Recommendations for Physicians and Patients from the U.S. Multi-Society Task Force on Colorectal Cancer Screening , Am J Gastroenterology 2017; 112:1007-3348. TEST DESCRIPTION: Composite algorithmic analysis of stool [...] (Reba Haynes al, N Engl J Med 2014;370(14):7428-8249.) Cologuard may produce a false negative or false positive result (no colorectal cancer or precancerous polyp present at colonoscopy follow up). A negative Cologuard test result does not guarantee the absence of CRC or advanced adenoma (pre-cancer). The current Cologuard screening interval is every 3 years. ([place] Cancer Society and U.S. Multi-Society Task Force). Cologuard performance data in a 10,000 patient pivotal study using colonoscopy as the reference method can be accessed at the following location: www.[employer].Idylis/results. Additional description of the Cologuard test process, warnings and precautions can be found at www.[employer].Idylis. Stool specimen (specimen) 12/15/2024 11:10 AM EST 12/16/2024 2:15 PM EST Elvira Shipley MD LAB MOLECULAR DIAGNOSTICS O RDERABLES Final Result [facility] (CLIA #:[id number]) [address] [place] [address], documented in this encounter Visit Diagnoses Diagnosis Screen for colon cancer- Primary Special screening for malignant neoplasms, colon documented in this encounter Care Teams Linotyper Relationship Specialty Start Date End Date Elvira Shipley MD [address] [place] [address] PCP - General Internal Medicine 11/11/18 Anabel Sullivan PharmD [address] [place] [address] Pharmacist Internal Medicine 03/26/25 documented as of this encounter
--- OUTSIDE RECORDS SUMMARY | 2025-08-06 08:45 | XMS_ITS | Encounter Summary ---
Author Organization [employer] Address [address] [place] [address] 7 [place] [address] Care Team Providers Care Automatic Nailing Machine Operator Name Role Phone Elvira Shipley MD Primary Care Provider [phone] Anabel Sullivan PharmD Unavailable [phone] Reason for Visit * Reason Comments Med Refill Encounter Details Date Type Department Care Team ([facility] st Contact Info) Description 03/13/2024 Refill C [facility] MED & PEDS 505 [place], [place] [phone] Elvira Shipley MD 505 [place] [address] Mild intermittent asthma without complication Social History [...] complication documented in this encounter Care Teams Automatic Nailing Machine Operator Relationship Specialty Start Date End Date Elvira Shipley MD 505 [place] [address] PCP - General Internal Medicine 11/11/18 Anabel Sullivan, PharmD 230 [place] [address] Pharmacist Internal Medicine 03/26/25 documented as of this encounter
--- OUTSIDE RECORDS SUMMARY | 2025-08-06 08:45 | XMS_ITS | Encounter Summary ---
Author Organization [employer] Address [address] [place] [address] 7 [place] [address] Care Team Providers Care Social Service Assistant Name Role Phone Elvira Shipley MD Primary Care Provider [phone]- [phone] Anabel Sullivan PharmD Unavailable [phone] Reason for Referral * Imaging (Routine) - Closed Specialty Diagnoses / Procedures Referred By Tara estrella Referred To Contact Radiology Diagnoses Transaminitis Procedures US Abdomen Complete Elvira Shipley MD 505 [place] [address] Phone: tel: fax: [facility] [address] [facility], [address] [place] [address] Phone: tel: fax: Referral ID Status Reason Start Date Expiration Date Visits Re quested Visits Authorized [id number] Closed 04/10/2024 04/10/2025 1 1 Encounter Details Date Type Department Care Team (Latest Contact Info) Description 04/10/2024 Orders Only [facility] CHC MED & PEDS 505 [place] [address] Elvira Shipley MD 505 [place], [place] [phone] Pure hypercholesterolemia (Primary Dx); Hypertriglyceridemia; Transaminitis Social [...] (LDH) documented in this encounter Care Teams Social Service Assistant Relationship Specialty Start Date End Date Elvira Shipley MD 505 [place] [address] PCP - General Internal Medicine 11/11/18 Anabel Sullivan PharmD 230 [place] [address] Pharmacist Internal Medicine 03/26/25 documented as of this encounter
--- OUTSIDE RECORDS SUMMARY | 2025-08-06 08:45 | XMS_ITS | Encounter Summary ---
Author Organization [employer] Address [address] [facility] [address] 7t [place] [address] Care Team Providers Care Silver Lap Machine Tender Name Role Phone Elvira Shipley MD Primary Care Provider [phone] Anabel Sullivan PharmD Unavailable [phone] Encounter Details Date Type Department Care Team (Late st Contact Info) Description 04/08/2025 Orders Only [facility] CHC MED & PEDS [address] [place], [place] [phone] ProviderAbdoul MD Social History Tobacco Use Types [...] Blood Venous blood specimen / Unknown Result [facility] Provider LAB BLOOD ORDERABLES Renetta l Result * Comprehensive Metabolic Panel (02/19/2025 9:19 AM EDT) Blood Venous blood specimen / Unknown Result [facility] Provider LAB BLOOD ORDERABLES Renetta l Result * Lipid Panel, Standard (02/19/2025 9:19 AM EDT) Blood Venous blood specimen / Unknown [facility] Provider LAB BLOOD ORDERABLES Renetta l Result * TSH with Reflex to Free T4 (02/19/2025 9:19 AM EDT) Blood Venous blood specimen / Unknown Result [facility] Provider LAB BLOOD ORDERABLES Renetta l Result documented in this encounter Visit Diagnoses Not on filedocumented in this encounter Care Teams Silver Lap Machine Tender Relationship Specialty Start Date End Date Elvira Shipley MD [address] [place] [address] PCP - General Internal Medicine 11/11/18 Anabel Sullivan, Laurence [address] [place] [address] [place] [address] Pharmacist Internal Medicine 03/26/25 documented as of this encounter
--- OUTSIDE RECORDS SUMMARY | 2025-08-06 08:45 | XMS_ITS | Encounter Summary ---
Author Organization [employer] Address [address] [place] [address] 7 [place] [address] Care Team Providers Care Latin American Studies Director Name Role Phone Elvira Shipley MD Primary Care Provider [phone] Anabel Sullivan PharmD Unavailable [phone] Encounter Details Date Type Department Care Team (Late st Contact Info) Description 09/17/2023 Orders Only [facility] CHC MED & PEDS 505 [place] [address] Elvira Shipley MD 505 [place] [address] Type 2 diabetes mellitus without complication, without long-term current use of insulin (CMS/[facility]ERLY [facility]); Pure hypercholesterolemia; Erectile dysfunction due to diseases [...] elsewhere documented in this encounter Care Teams Latin American Studies Director Relationship Specialty Start Date End Date Elvira Shipley MD 505 [place] [address] PCP - General Internal Medicine 11/11/18 Anabel Sullivan, Laurence [address] [place] [address] Pharmacist Internal Medicine 03/26/25 documented as of this encounter
--- OUTSIDE RECORDS SUMMARY | 2025-08-06 08:45 | XMS_ITS | Encounter Summary ---
Author Organization [employer] Address [address] [place] [address] [place] [address] Care Team Providers Care Roadability Machine Operator Name Role Phone Elvira Shipley MD Primary Care Provider [phone] Anabel Sullivan PharmD Unavailable [phone] Reason for Referral * Consultation (Routine) - Authorized Specialty Diagnoses / Procedures Referred By Contrufus t Referred To Contact Pharmacy Diagnoses Type 2 diabetes mellitus without complication, without long-term current use of insulin (CMS/HCC) Elvira Shipley MD 505 [place] [address] Phone: tel: fax: Referral ID Status Reason Start Date Expiration Date Visits Requested Visits Authorized [id number] Authorized Consult and Treat 02/16/2025 02/16/2026 6 6 Encounter Details Date Type Department Care Team ([facility] st Contact Info) Description 02/16/2025 Orders Only [facility] CHC MED & PEDS 505 [place] [address] Elvira Shipley MD 505 [place] [address] Type 2 diabetes mellitus without complication, without [...] Primary documented in this encounter Care Teams Roadability Machine Operator Relationship Specialty Start Date End Date Elvira Shipley MD 505 [place] [address] PCP - General Internal Medicine 11/11/18 Anabel Sullivan PharmD [address] [place] [address] Pharmacist Internal Medicine 03/26/25 documented as of this encounter
--- OUTSIDE RECORDS SUMMARY | 2025-08-06 08:45 | XMS_ITS | Encounter Summary ---
Author Organization [employer] Address [address] [place] [address] 7 [place] [address] Care Team Providers Care Education Professional Name Role Phone Elvira Shipley MD Primary Care Provider [phone] Anabel Sullivan PharmD Unavailable [phone] Reason for Referral * Imaging (Routine) - Authorized Specialty Diagnoses / Procedures Referred By Contac t Referred To Contact Radiology Diagnoses Pure hypercholesterolemia Procedures US Abdomen Comp w elastography Elvira Shipley MD 505 [place] [address] Phone: tel: fax: [address] Phone: tel: fax: Referral ID Status Reason Start Date Expiration Date V isits Requested Visits Authorized [id number] Authorized 04/09/2025 04/09/2026 1 1 * Imaging (Routine) - Authorized Specialty Diagnoses / Procedures Referred By Contac t Referred To Contact Radiology Diagnoses Pure hypercholesterolemia Procedures US Abdomen Complete Elvira Shipley MD 505 [place] [address] Phone: tel: fax: [address] Phone: tel: fax: Referral ID Status Reason Start Date Expiration Date V isits Requested Visits Authorized [id number] Authorized 04/09/2025 04/09/2026 1 1 Encounter Details Date Type Department Care Team (Latest Contact Info) Description 04/09/2025 Orders Only [facility] CHC MED & PEDS 505 [place] [address] Elvira Shipley MD 505 [place] [address] Pure hypercholesterolemia (Primary Dx) Social History Tobacco [...] Pure hypercholesterolemia Expected: 04/09/2025 (Approximate), Expires: 04/09/2026 Alpha 1 Antitrypsin Lab Routine Pure hypercholesterolemia Expected: 04/09/2025 (Approximate), Expires: 04/09/2026 US Abdomen Comp w elastography Imaging Routine Pure hypercholesterolemia Expected: 04/09/2025, Expires: 04/09/2026 documented as of this encounter Procedures Procedure Name Priority Date/Time Associated Diagnosis Comments PROTHROMBIN TIME-INR Routine 07/14/2025 8:43 AM EDT Pure hypercholesterolemia IRON AND TOTAL IRON BINDING CAPACITY Routine 04/16/2025 12:00 AM EDT Pure hypercholesterolemia IMMUNOGLOBULINS, QUANTITATIVE, IGA, IGG, IGM Routine 04/16/2025 12:00 AM EDT Pure hypercholesterolemia FERRITIN Routine 04/16/2025 12:00 AM EDT Pure hypercholesterolemia documented in this encounter Results * (ABNORMAL) Prothrombin Time-INR (07/14/2025 8:43 AM EDT) Prothrombin Time 10.0(L) 10.9 - 12.4 SEC [facility] INTERNATIONAL NORM RATIO 0.9 0.9 - 1.1 [facility] Comment:INTERNATIONAL NORMAL IZED RATIO (INR) REFERENCE RANGES Reference RangeFor patients not on anticoagulant therapy: 0.9 - 1.1INR ranges for oral anticoagulanttherapy:For prevention and treatment of venous thrombosis and pulmonary embolism: 2.0 - 3.0For acute myocardial infarction with aspirin therapy: 2.0 - 3.0For acute myocardial infarction without aspirin therapy: 3.0 - 4.0For patients with mechanical prosthetic heart valves: 2.5 - 3.5 Blood Venous blood specimen / Unknown 07/14/2025 8:43 AM EDT 07/14/2025 1:54 PM EDT Elvira Shipley MD LAB BLOOD ORDERABLES Final Result [facility] [address] [place] [address] [phone] * Iron And Total Iron Binding Capacity (04/16/2025 12:00 AM EDT) Iron 81 45 - 160 mcg/dL [facility] Total Iron Binding Capacity 302 228 - 428 mcg/dL [facility] Percent Iron Saturation 27 15 - 50 % [facility] Unsaturated Iron Binding 221 ug/dL [facility] Blood Venous blood specimen / Unknown 04/16/2025 04/16/2025 us Elvira Shipley MD LAB BLOOD ORDERABLES Final Result Performing Organization Address [facility] Co de Phone Number [facility] [address] [place] [address] [phone] * (ABNORMAL) Ferritin (04/16/2025 12:00 AM EDT) Pathologist [facility] Ferritin 436(H) 20 - 250 ng/mL [facility] Blood Venous blood specimen / Unknown 04/16/2025 04/16/2025 us Elvira Shipley MD LAB BLOOD ORDERABLES Final Result Performing Organization Address [facility] Co de Phone Number [facility] [address] [place] [address] [phone] * (ABNORMAL) Immunoglobulins, Quantitative, IgA, IgG, IgM (04/16/2025 12:00 AM EDT) IMMUNOGLOBULIN G 1172 600 - 1540 mg/dL [facility] IMMUNOGLOBULIN A 583(A) 70 - 320 mg/dL [facility] Immunoglobulin M 73 50 - 300 mg/dL [facility] Comment:THIS TEST WAS PERFOR MED AT:[employer] [place] [id number] LEONARD MD Blood Venous blood specimen / Unknown 04/16/2025 04/16/2025 Elvira Shipley MD LAB BLOOD ORDERABLES Final Result [facility] [address] [place] [address] [phone] documented in this encounter Visit Diagnoses Diagnosis Pure hypercholesterolemia- Primary documented in this encounter Care Teams Education Professional Relationship Specialty Start Date End Date Elvira Shipley MD [address] [place] [address] PCP - General Internal Medicine 11/11/18 Anabel Sullivan PharmD [address] [place] [address] Pharmacist Internal Medicine 03/26/25 documented as of this encounter
--- OUTSIDE RECORDS SUMMARY | 2025-08-06 08:45 | XMS_ITS | Encounter Summary ---
Author Organization [employer] Address [address] [place] [address] 7 [place] [address] Care Team Providers Care Fashion Director Party Plan Sales Name Role Phone Elvira Shipley MD Primary Care Provider [phone] Anabel Sullivan PharmD Unavailable [phone] Encounter Details Date Type Department Care Team (Late st Contact Info) Description 05/01/2024 Orders Only [facility] CHC MED & PEDS 505 [place] [address] Elvira Shipley MD 505 [place] [address] Type 2 diabetes mellitus without complication, without [...] Primary documented in this encounter Care Teams Fashion Director Party Plan Sales Relationship Specialty Start Date End Date Elvira Shipley MD 505 [place] [address] PCP - General Internal Medicine 11/11/18 Anabel Sullivan, Mary BethD 230 [place] [address] Pharmacist Internal Medicine 03/26/25 documented as of this encounter
--- OUTSIDE RECORDS SUMMARY | 2025-08-06 08:45 | XMS_ITS | Clinical Summary ---
Author Organization [email or web address] Address [address] [facility] [address] [place] [address] Care Team Providers Care Brakes Inspector Name Role Phone Elvira Shipley MD Primary Care Provider [phone] Anabel Sullivan PharmD Unavailable Allergies No known active allergies Medications brimonidine [...] complication, without long-term current use of insulin ([facility]) TAKE 1 TABLET EVERY MORNING 30 tablet 5 04/28/2 025 Active Aspirin Low Dose 81 MG EC tabletIndications:Type 2 diabetes mellitus without complication, without long-term current use of insulin ([facility]) TAKE 1 TABLET EVERY MORNING 30 tablet [...] complication, without long-term current use of insulin ([facility]) 1 each by Other route Once per day. Test blood sugar every morning 100 each 3 Active Blood Glucose Monitoring Suppl (FreeStyle Ponsford Lite) w/Device kitIndications:Type 2 diabetes mellitus without complication, without long-term current use of insulin ([facility]) Test blood sugar every morning 1 kit [...] TABLET ONCE DAILY 90 tablet 025 Active lisinopril 5 MG tabletIndications:Type 2 diabetes mellitus without complication, without long-term current use of insulin (CMS/HCC),Microalbuminu cristy Take 1 tablet (5 mg) by mouth Once per day. 30 tablet 11 025 2025 Active Active Problems Problem Noted Date Diagnosed [...] Encounters Date Type Department Care Team Description 07/15/2025 Results Follow-Up [facility] [address] [place] [address] Jennie Alcala, KATHARINE Hemoglobin A1c, Albumin, Random Urine W/Creatinine 07/14/2025 Orders Only [facility] [address] [place] [address] Elvira Shipley MD Type 2 diabetes mellitus without complication, without long-term current use of insulin ([facility]) (Primary Dx); Microalbuminuria 07/14/2025 Orders Only [facility] [address] [place] [address] Elvira Shipley MD 07/13/2025 3:00 PM EDT Telemedicine [facility] [address] [place] [address] Anabel Sullivan PharmD Type 2 diabetes mellitus without complication, without long-term current use of insulin ([facility]) (Primary Dx) 07/13/2025 Travel 06/10/2025 4:00 PM EDT Office Visit [facility] [address] [place] [address] Elvira Shipley MD Type 2 diabetes mellitus without complication, without long-term current use of insulin ([facility]); Pure hypercholesterolemia 06/10/2025 Travel 06/09/2025 Telephone [facility] [address] [place] [address] Elvira Shipley MD Chart Prep 06/03/2025 Patient Outreach [facility] [address] [place] [address] Elvira Shipley MD Pre-visit Planning (Pre visit planning LVM ) 06/02/2025 3:00 PM EDT Telemedicine [facility] [address] [place] [address] Anabel Sullivan PharmD Type 2 diabetes mellitus without complication, without long-term current use of insulin ([facility]) (Primary Dx) from Last 3 Months Immunizations Immunization Administration [...] Colonoscopy 1955 Depression Screening 1955 FIT 1955 Sigmoidoscopy 1955 Zoster Vaccines (1 of 2) 2005 RSV Patients and Patients Aged 60 years or older (1 - Risk 60-74 years 1-dose series) 2015 Eye Exam 04/08/2025 04/08/2024 COVID-19 Vaccine ( season) 2025 04/07/2024, 09/08/2021, 02/15/2021, Additional history exists Influenza Vaccine (#1) 2025 , 08/29/2021, 08/18/2019, Additional history exists Diabetes: Hemoglobin A1C 10/13/2025 025, 03/26/2025, 11/19/2024, Additional history exists Diabetes: Foot Exam 11/19/2025 11/19/2024 FOBT 12/15/2025 12/15/2024 Lipid Panel 04/16/2026 04/16/2025, 02/09, 04/08/2024, Additional history exists Alcohol/Substance Use Screening 06/10/2026 06/10/2025 SDOH Screening 06/10/2026 06/10/2025 Tobacco Screening 06/10/2026 06/10/2025 DTaP/Tdap/Td Vaccines (2 - Td or Tdap) 07/06/2026 07/06/2016 Diabetes: Urine Protein Screening 07/14/2026 07/14/2025, 04/08/2024, 01/11/2021 Colorectal Cancer Screening 12/15/2027 FIT DNA/Cologuard 12/15/2027 [...] Procedure Name Priority Date/Time Associated Diagnosis Comments ALBUMIN, RANDOM URINE W/CREATININE Routine 07/14/2025 8:47 AM EDT HEMOGLOBIN A1C Routine 07/14/2025 8:43 AM EDT PROTHROMBIN TIME-INR Routine 07/14/2025 8:43 AM EDT Pure hypercholesterolemia POCT GLUCOSE Routine 06/10/2025 4:04 PM EDT Type 2 diabetes mellitus without complication, without long-term current use of insulin (CMS/HCC) LIPID PANEL, STANDARD Routine 04/16/2025 12:00 AM EDT Type 2 diabetes mellitus without complication, without long-term current use of insulin (CMS/HCC) LAB COLOGUARD COLON CANCER SCREEN Routine 12/15/2024 11:10 AM EST Screen for colon cancer ZZZ HISTORICAL HEPATITIS C AB W/REFL TO HCV RNA, QN, PCR Routine 08/16/2022 8:55 AM EDT from Last 3 Months or Most Recently Relevant to Health Maintenance Results * (ABNORMAL) Albumin, Random Urine W/Creatinine (07/14/2025 8:47 AM EDT) Creatinine, Urine 69.30 mg/dL [facility] Microalbumin Urine 100.0 mg/L [facility] Microalbum Creatinine Ratio Ur 144.3(H) <30 ug/mg cr [facility] Comment:Albumin/Creatinine R atio Reference Ranges: Normal: < 30 ug/mg creatinine Microalbuminuria: 30 - 300 ug/mg creatinineClinical Albuminuria: > 300 ug/mg creatinine 07/14/2025 8:47 AM EDT 07/14/2025 1:57 PM EDT us Elvira Shipley MD LAB URINE ORDERABLES Final Result Performing Organization Address City/State/[facility] Co de Phone Number [facility] [address] [place] [phone] * (ABNORMAL) Prothrombin Time-INR (07/14/2025 8:43 AM EDT) Prothrombin Time 10.0(L) 10.9 - 12.4 SEC [facility] INTERNATIONAL NORM RATIO 0.9 0.9 - 1.1 [facility] Comment:INTERNATIONAL NORMAL IZED RATIO (INR) REFERENCE [...] BLOOD ORDERABLES Final Result Performing Organization Address [facility] de Phone Number [facility] [address] [place] [phone] * (ABNORMAL) Hemoglobin A1c (07/14/2025 8:43 AM EDT) Hemoglobin A1c 9.0(H) <6.0 % [facility] Comment:Hemoglobin A1C Refer ence Range Adults: 4.8 - 6.0 % Non diabetic: < 6.0 % Goal: < 7.0 %Additional Action Suggested: > 8.0 %Note: Hemoglobin A1c results are invalid for patients with abnormal amounts of HbF. Blood transfusions may impact the HbA1c concentration in the patient sample. Estimated Average Glucose 212 mg/dL [facility] Comment:eAG = Estimated ave rage glucose which is %A1C expressed asaverage glucose, using the formula of the G7F-[id number] Glucose study (ADAG), Diabetes Care, Vol.31,#8,2007 07/14/2025 8:43 AM EDT 07/14/2025 1:54 PM EDT us Elvira Shipley MD LAB BLOOD ORDERABLES Final Result [facility] [address] [place] [phone] * POCT Glucose (06/10/2025 4:04 PM EDT) Glucose Blood, POC 176 60 - 200 mg/dL QC Media Lot # [id number] Lot# Expiration Date Blood Capillary blood specimen / Unknown 06/10/2025 4:04 PM EDT us Elvira Shipley MD POINT OF CARE TEST ENTER/ED IT ORDERABLES Final Result * (ABNORMAL) Lipid Panel, Standard (04/16/2025 12:00 AM EDT) Triglycerides 196(H) <150 mg/dL [facility] Comment:Desirable Triglyceri de: less than 150 mg/dLBorderline High Triglyceride 150-199 mg/dLHigh Triglyceride: 200-499 mg/dLVery High Triglyceride: greater than or equal to 5OO mg/dL Cholesterol 120 <200 mg/dL [facility] Comment:Desirable Cholestero l: less than 200 mg/dLBorderline High Cholesterol: 200-239 mg/dLHigh Cholesterol: greater than 239 mg/dL LDL Cholesterol Calculated 46 <100 mg/dL [facility] Comment:Desirable LDL: less than 100 mg/dLNear Optimal/Above Optimal LDL: 110- 129 mg/dLBorderline High LDL: 130-159 mg/dLHigh LDL: 160-189 mg/dLVery High LDL: greater than or equal to 190 mg/dL HDL Cholesterol 35(L) >40 mg/dL [facility] Comment:Desirable HDL: great er than 40 mg/dL Note: This HDL assay may give artificially low results in patients with liver disease. Blood Venous blood specimen / Unknown 04/16/2025 04/16/2025 us Elvira Shipley MD LAB BLOOD ORDERABLES Final Result [facility] [address] [place] [phone] * Cologuard?? colon cancer screening (12/15/2024 11:10 AM EST) Cologuard Result Negative Negative 12/23/19 2:06 AM EST [facility] (CLIA #:[id number]) Comment: NEGATIVE TEST RESULT. A negative Cologuard [...] screened with both Cologuard and colonoscopy. (Reba Spence. et al, N Engl J Med 2014;370(14):5983-9433) The normal value (reference range) for this assay is negative. COLOGUARD RE-SCREENING RECOMMENDATION: Periodic colorectal cancer screening is an important part of preventive healthcare for asymptomatic individuals at average risk for colorectal cancer. Following a negative Cologuard result, the [employer] Cancer Society and U.S. Multi-Society Task Force screening guidelines recommend a Cologuard re-screening interval of 3 years. References: [employer] Guideline for Colorectal Cancer Screening: https://www.cancer.org/cancer/qwuwf-hrbhpo-upvndd/xbtrjpsox-yjgdukfez-rjnrdke/ac s-rec ommendations.html.; Dima COLLINS, Jina LEWIS, Renu ARZATE, Colorectal Cancer Screening: Recommendations for Physicians and Patients from the U.S. Multi-Society Task Force on Colorectal Cancer Screening , Am J Gastroenterology 2017; 112:8121-8325. TEST DESCRIPTION: Composite algorithmic analysis of stool [...] (Reba Haynes al, N Engl J Med 2014;370(14):7086-1812.) Cologuard may produce a false negative or false positive result (no colorectal cancer or precancerous polyp present at colonoscopy follow up). A negative Cologuard test result does not guarantee the absence of CRC or advanced adenoma (pre-cancer). The current Cologuard screening interval is every 3 years. ([employer] Society and U.S. Multi-Society Task Force). Cologuard performance data in a 10,000 patient pivotal study using colonoscopy as the reference method can be accessed at the following location: www.WhoAPI/results. Additional description of the Cologuard test process, warnings and precautions can be found at www.[employer].com. Stool specimen (specimen) 12/15/2024 11:10 AM EST 12/16/2024 2:15 PM EST us Elvira Shipley MD LAB MOLECULAR DIAGNOSTICS O RDERABLES Final Result [facility] (CLIA #:[id number]) [place] [address], * HEPATITIS C AB W/REFL TO HCV [...] a test for HCV RNA (test code 01966) is suggested. For additional information please refer to http://education.Contur/faq/ZOU07p5 (This link is being provided for informational/ educational purposes only.) 08/16/2022 8:55 AM EDT Elvira Shipley MD HISTORICAL/NON ORDERABLE JASS LENTZ Final Result [facility] from Last 3 Months or Most Recently Relevant to Health Maintenance Insurance [facility] OPTIONS (O D-SNP) [employer] [id number] Care Teams Brakes Inspector Relationship Specialty Start Date End Date Elvira Shipley MD [address] [place] [address] PCP - General Internal Medicine 11/11/18 Anabel Sullivan, Mary BethD [address] [place] [address] Pharmacist Internal Medicine 03/26/25
== END 2025-08-06 08:23 | disposition home or self-care (01) ==
LOC: HO.US 08:22
PROVIDERS: PCP Internal Medicine; Visit Provider Internal Medicine
DX: E78.00 Pure hypercholesterolemia, unspecified (principal)
CPT/HCPCS: 76700; 76981

== ENCOUNTER → 2025-08-06 08:25 | Outpatient (BNV) | payer OTHER, SELFPAY | PROVIDERS: PCP Internal Medicine; Visit Provider Radiology Diagnostic Radiology | DX: R74.01 Elevation of levels of liver transaminase levels (principal) | CPT/HCPCS: 76700 ==